=== PATIENT | male | born 1960 | race Caucasian/White ===

== ENCOUNTER 2016-12-02 05:57 | Day surgery (SDC) | payer BC, OTHER ==
[~2016-12-02] VITALS: Ht 182.9 cm; Wt 53.3 kg
[2016-12-02] MEDS ORDERED: IOHEXOL 350 MG/ML 100 ML BTL (for Cath Lab) OTHER ONE (05:58)
[2016-12-02] MEDS ORDERED: NS 1000P @30 MLS/HR (KVO) IV SCH ×2 (06:15→06:30)
[2016-12-02] MEDS ORDERED: diphenhydrAMINE HCL 50 MG CAP PO SCH ×2 (06:15→06:30)
[2016-12-02] MEDS ORDERED: POVIDONE IODINE 5% (ANTISEPSIS KIT) 4 APPLICATIONS EACH NARE PRN (06:30)
[2016-12-02] MEDS ORDERED: LACTATED RINGER'S 1000 ML IV PRN (06:30)
[2016-12-02] MEDS ORDERED: SODIUM CHLORID 0.9% 500 ML IV PRN (06:30)
[2016-12-02] MEDS ORDERED: METOPROLOL TARTRATE 25 MG TAB PO PRN (06:30)
[2016-12-02] MEDS ORDERED: INSULIN HUMAN REGULAR 1,000 UNITS/10 ML VIAL SQ PRN (06:30)
[2016-12-02] MEDS ORDERED: CHLORHEXIDINE GLUCONATE 2 % 1 PACK (2 CLOTHS) TOPICAL PRN (06:30)
[2016-12-02] MEDS ORDERED: CHOL1CAP8 PO (06:48)
[2016-12-02] MEDS ORDERED: SPIRCAP INH (06:48)
[2016-12-02] MEDS ORDERED: CYAN100025 SL (06:48)
[2016-12-02] MEDS ORDERED: LEVO1TAB50 PO (06:48)
[2016-12-02] MEDS ORDERED: FOLI400T PO (06:48)
[2016-12-02] MEDS ORDERED: MULTTAB67 PO (06:48)
[2016-12-02] MEDS ORDERED: VENTAER INH (06:48)
[2016-12-02 07:15] VITALS: BP 118/89; PULSE 72; RESP 17; TEMP 97.6; O2SAT 94
[2016-12-02 07:20] LABS: AUTOMATED NEUTROPHIL # 1.3 TH/MM3 (1.8-7.7); BASOPHIL # 0.1 TH/MM3 (0-0.2); EOSINOPHIL # 0.4 TH/MM3 (0-0.4); EOSINOPHIL % 8.4 % (0.0-4.0); HEMATOCRIT 37.1 % (39.0-51.0); HEMO FLAGS DIFF FINAL; LYMPH % 52.1 % (9.0-44.0); LYMPHOCYTE # 2.2 TH/MM3 (1.0-4.8); MEAN CELL VOLUME 103.2 FL (80.0-100.0); MEAN CORPUSCULAR HEMOGLOBIN 35.2 PG (27.0-34.0); MEAN CORPUSCULAR HGB CONC 34.2 % (32.0-36.0); MONO % 7.2 % (0.0-8.0); NEUT % 30.3 % (16.0-70.0); PLATELET COUNT 180 TH/MM3 (150-450); RED CELL DISTRIBUTION WIDTH 12.9 % (11.6-17.2); WHITE BLOOD COUNT 4.3 TH/MM3 (4.0-11.0)
[2016-12-02 07:29] LABS: APTT (PATIENT) 25.7 SEC (24.3-30.1); PROTHROMBIN TIME - PATIENT 10.5 SEC (9.8-11.6)
[2016-12-02 08:02] LABS: BICARBONATE 30.3 MEQ/L (21.0-32.0); POTASSIUM 3.8 MEQ/L (3.5-5.1)
[2016-12-02] MEDS ORDERED: HEPARIN-NS/PF INJ 1,000 ML ONE (08:13)
[2016-12-02] MEDS ORDERED: MIDAZOLAM HCL 2 MG/2 ML VIAL ONE (08:13)
[2016-12-02] MEDS ORDERED: HEPARIN SODIUM - IV 10,000 UNITS/10 ML VIAL ONE (08:14)
[2016-12-02] MEDS ORDERED: NITROGLYCERIN INJ 5 ML ONE (08:14)
[2016-12-02] MEDS ORDERED: VERAPAMIL HCL 5 MG/2 ML VIAL ONE (08:14)
[2016-12-02] MEDS ORDERED: NITROGLYCERIN-D5W 50 MG/250 ML 250 ML ONE (08:18)
--- NOTE | 2016-12-02 08:54 | EKG ---
Date Performed: 12/02/2016 Time Performed: 06:49:54 PTAGE: 56 years EKG: Sinus rhythm . Septal T wave changes are nonspecific Borderline ECG NO PREVIOUS TRACING DOCTOR: Abel Enriquez Interpretating Date/Time 12/02/2016 08:53:23
[2016-12-02] MEDS ORDERED: MISC INFORMATION XX ONE (09:30)
--- NOTE | 2016-12-02 09:42 | CATHPROC ---
[facility] HIS Report Study Information Study Number Admission Scheduled Start Study Start [id number] Dec 02 2016 5:57AM 12/02/2016 Dec 02 2016 8:04AM [facility] Service Cardiac Catheterization Admit Source Facility Department Other [facility] - [facility] Specialist Physician and Clinical Staff Initial MD Crisostomo, Pavan Cruller Maker Sean WELLS, Jean Recorder Tomeka Flores,RT(R) (BS) Recorder Jess Hinson RCIS TECH2 Scrub Primitivo Moore RCIS(BS) Procedures Performed Procedure Location (Site) Vessel Name Coronary Angiograms LCA Left Coronary Coronary Angiograms RCA Right Coronary LV Gram-hand inj. LV LV Ventricle Wire insertion Radial (right) Radial Art. Equipment Time Director Of Human Resources Description Size Mfg Part Number Used/Scraped [id number] 08:25 HUTTON CHRISTIE SWAN JAIME CATHETER FR 7 Used *[id number] TRANSDUCER, TRUWAVE [id number] 08:25 HUTTON CHRISTIE * Used W/STOCKCOCK *[id number] TRANSDUCER, TRUWAVE [id number] 08:25 HUTTON CHRISTIE * Used W/STOCKCOCK *[id number] MPIS-502-10.0- INTRODUCER SET, 08:25 [employer]OOK INC. FR 5 SC-NT-U-SST Used MICROPUNCTURE, STIFFENED *[id number] MPIS-502-10.0- INTRODUCER SET, 08:31 [employer]. FR 5 SC-NT-U-SST Used MICROPUNCTURE, STIFFENED *[id number] [phone] *[id number] *[id number] [phone] *[id number] *[id number] 08:25 House Party INDUSTRIES PACK, CCL CUSTOM * Used *[id number] 08:55 MEDTRONIC/AVE EBU 3.5 Z2 GUIDE CATHETER FR 6 Used *[id number] BAND, RADIAL COMPRESSION TR [id number] 09:15 [email or web address] MEDICAL 24CM Used SHORT 24 *[id number] 08:25 [email or web address] MEDICAL WIRE, 3MMJ .035 180CM 180CM Used *[id number] 08:25 NAMIC MANIFOLD, 2 PORT * Used *[id number] 08:25 NAMIC MANIFOLD, 4 PORT * Used *[id number] 08:25 NYCOMED OMNIPAQUE, 350 MG, 150ML 150ML [id number] Used [id number] 08:25 MCNEILL MEDICAL BLANKET,WARM AIR CCL * Used *[id number] 08:25 TERUMO MEDICAL SHEATH, FR5 TERUMO (10CM) FR 5 Used *[id number] SHEATH, FR6 TRANSRADIAL [id number] 08:29 TERUMO MEDICAL FR 6 Used SLENDER 10CM *[id number] 08:25 TERUMO MEDICAL SHEATH, FR7 TERUMO (10CM) FR 7 Used *[id number] 08:47 [place]OL[place]O PRIME WIRE, VERRATA 185CM 185CM 01160 *[id number] Used Equipment Model, Serial, Lot Number and Expiration Data Description Model Number Serial Number Lot Number Expiration Date INTRODUCER SET, [id number] 09-17-2019 MICROPUNCTURE, STIFFENED PRIME WIRE, VERRATA 185CM [id number] 09-20-2019 History: Current Medications Medication Dosage/Unit Route Frequency Last Date/Time Taken Albuterol VITAMIN D History: Allergies Allergy Reaction No Known Allergies morphine History: Risk Factors Family History of Hypertension Dyslipidemia Previous MO Previous Heart Failure Premature CAD No No No No No Prior Valve Prior PCI Prior CABG Surgery No No No Cerebrovascular Peripheral Artery Chronic Lung On Dialysis Diabetes Disease Disease Disease No No No Yes No History: Stress Tests Stress or Imaging Studies Performed No History: Other Current Smoker Method Quit Packs a Day Years Used Pack Years No Cigarettes 1 Years Ago 1 30 30 Labs Hgb (g/dl) Hct (%) WBC (l/cumm) Platelets (thousands) 11.60-17.00 35.00-51.00 4.00-11.00 150.00-450.00 12.7 37.1 4.3 180 Glucose (mg/dl) BUN (mg/dl) Creatinine (mg/dl) BUN:Creatinine (1:x) 74.00-106.00 7.00-18.00 0.50-1.30 10.00-20.00 89 8 0.8 10 Na (meq/l) K (meq/l) 136.00-145.00 3.50-5.10 139 3.8 INR (PTT:PT) 0.90-1.10 1 CPK-MB (ng/ML) 0.50-3.60 Not Drawn Medication Medication Total Dose (Bolus/Oral) Medication Total Dosage/Unit 1% XYLOCAINE 21 mL FENTANYL 100 mcg HEPARIN 2500 units RADIAL COCKTAIL 5 mL (Bolus) VERSED 2 mg Medications (Bolus/Oral) Medication Time Given Dosage/Unit Administered By Reason FENTANYL 12/02/2016 8:26:07 AM 50 mcg Jean Estrada RN 50 mcg FENTANYL given in lab by Jean Estrada RN in Left Antecubital via Peripheral IV. VERSED 12/02/2016 8:27:15 AM 2 mg Jean Estrada RN 2 mg VERSED given in lab by Jean Estrada RN in Left Antecubital via Peripheral IV. 1% XYLOCAINE 12/02/2016 8:27:40 AM 1 mL Jean Estrada RN 1 mL 1% XYLOCAINE given in lab by Jean Estrada RN in Right Radial via Subcutaneous. Ntg 200mcg Verapamil 2.5mg Heparin RADIAL COCKTAIL 12/02/2016 8:29:05 AM 5 mL (Bolus) Huan Crisostomoro 2500U 5 mL (Bolus) RADIAL COCKTAIL given in lab by Pavan Crisostomo in Right Radial via Radial. Using [Sho ution Name]. Ordered by Pavan Crisostomo. Reason: Ntg 200mcg Verapamil 2.5mg Heparin 2500U. 1% XYLOCAINE 12/02/2016 8:37:29 AM 20 mL Rafa-Pavan Ly 20 mL 1% XYLOCAINE given in lab by Pavan Crisostomo in Right Groin via Subcutaneous. HEPARIN 12/02/2016 8:46:35 AM 2500 units Jean Estrada RN 2500 units HEPARIN given in lab by Jean Estrada RN in Left Antecubital via Peripheral IV. Ordered by Pavan Crisostomo. FENTANYL 12/02/2016 8:56:34 AM 50 mcg Jean Estrada RN 50 mcg FENTANYL given in lab by Jean Estrada RN in Left Antecubital via Peripheral IV. Ordered by Pavan Moreno. Medication (Drip) Medication Time Given Dosage/Unit Concentration/Unit Diluent (ml) Solution IV Solutions 12/02/2016 8:21:18 AM 0 mL (IV) 500 NaCl .9 IV Solutions given in lab by Jean Estrada RN in Left Antecubital via Peripheral IV. Pump/Drip Flow = 20 ml/hr using NaCl .9. Initial Case Assessment Cardiovascular HR Rhythm NIBP Chest Pain 72 reg 123/76 0 Edema Present Skin color Skin None Normal Warm Dry Circulatory - Right Pulses Dorsalis Pedis Femoral Radial 2 2 2 Scale (0,1,2,3,4,d) Scale (0,1,2,3,4,d) Circulatory - Lower Extremities Color Lower Right Color Lower Left Normal Normal Neurological State Oriented to time-place- Alert Moves all extremities person Respiration - General Respiration Rate SpO2 (%) (B/min) 8 100 Chronological Log Time Study Chronological Log 8:09:32 Patient arrived via Bed. 8:09:36 Patient Name, D.O.B, / Armband Verified By R.N. 8:18:21 Right Radial and right groin(s) prepped with 2% chlorhexidine, and draped after a 3 min. wa iting time. Vitals capture started with the following parameters, Patient=Adult, Interval=5 min, Initial Pr gulvht=933 mmHg, 8:19:26 Deflation Rate=5 mmHg, Cuff placed on Right Arm 8:19:39 Consent signed by the physician and the patient and verified by the [facility] staff. 8:19:40 Pre-op and post- op instructions given; patient acknowledges understanding of instructions. 8:19:41 Verbal Stimulation=2 Physical Stimulation=2 Airway=2 Respiration=2 TOTAL=8. (0=absent, 1=li mited, 2=present) 8:19:45 Presedation assessment performed by Veterinary Milk Specialist RN. 8:19:54 Allens test performed on the right radial and ulnar artery. 8:20:01 HR=91 bpm, VXNE=344/76 mmhg, UmV0=421.0 %, Resp=12 B/min, Pain=0, Orestes=10, Dyer=2 8:20:44 Patient has been NPO for More than 6Hrs. 8:20:48 Skin Breakdown none per pt 8:20:49 Patient Warmer Placed on the Table. 8:20:51 Fannie Prominences Protected 8:21:17 A # 20 IV was noted in the Antecubital (left). Grade = 0 IV Solutions given in lab by Jean Estrada RN in Left Antecubital via Peripheral IV. Pump/Drip F low = 20 ml/hr using NaCl 8:21:18 .9. 8:21:19 History and physical on the chart or being dictated. Assessment: Initial Case, HR=72 BPM, Rhythm=reg, ZUWC=461/76 mmhg, Chest Pain=0, Edema=None, Col or=Normal, Skin = Warm, Dry Right Pulses: Robert Ped=2, Femoral=2, Radial=2 8:21:20 Lower Right Extremities: Color=Normal Lower Left Extremities: Color=Normal Neurological: State=Alert, Ox3, GARCIA Respiration: Resp=8 B/min, FuP7=699 % 8:22:06 MD paged 8::29 MD responded 8::59 Pressure channel 1 zeroed. 8:25:00 HR=80 bpm, BGLQ=779/79 mmhg, SpO2=99.0 %, Resp=7 B/min, Pain=0, Orestes=10, Dyer=2 8:25:13 MD arrived. 8:25:25 Reference ECG taken 8:26:07 50 mcg FENTANYL given in lab by Jean Estrada RN in Left Antecubital via Peripheral IV. Time Out. Correct patient, correct procedure, correct physician, power injector not loaded with contrast with surgical 8::43 team present. Time Out Concurred by MD and individual staff in procedure. 8:26:58 Case Start 8:27:15 2 mg VERSED given in lab by Jean Estrada RN in Left Antecubital via Peripheral IV. 8:27:40 1 mL 1% XYLOCAINE given in lab by Jaen Estrada RN in Right Radial via Subcutaneous. 8:28:23 Access site was right Radial Artery. A SHEATH, FR6 TRANSRADIAL SLENDER 10CM FR 6 was advanced into the Radial (right) using the [place] 8:28:37 technique. 5 mL (Bolus) RADIAL COCKTAIL given in lab by Pavan Crisostomo in Right Radial via Radial. Using [Solution Name]. 8:29:05 Ordered by Pavan Crisostomo. Reason: Ntg 200mcg Verapamil 2.5mg Heparin 2500U. A JR 4.0 INFINITI CATHETER FR 5 was advanced over a wire. OMNIPAQUE, 350 MG, 150ML 150ML was use d for 8:29:33 injections. 8:30:01 HR=84 bpm, NIBP=91/68 mmhg, SpO2=97.0 %, Resp=23 B/min, Pain=0, Orestes=10, Dyer=2 Recorded Pressure: LV, HR=94, Condition=Condition 1 8:31:00 (Left Ventricle) LV 81/1/5 8:31:14 The LV was manually injected with 8 cc's and visualized. OMNIPAQUE, 350 MG, 150ML 150ML used . Recorded Pressure: LV, Ao, HR=91, Condition=Condition 1 8:31:32 (Left Ventricle) LV 76/11/11, (Aorta) Ao 77/57/67 8:32:26 The RCA was injected and visualized at various angles. OMNIPAQUE, 350 MG, 150ML 150ML used. Recorded Pressure: Ao, HR=89, Condition=Condition 1 8:32:42 (Aorta) Ao 78/55/66 After removing the current catheter a JL 4.0 INFINITI CATHETER FR 5 was advanced over a WIRE, 3M MJ .035 180CM 8:33:07 180CM. 8:34:31 The LCA was injected and visualized at various angles. OMNIPAQUE, 350 MG, 150ML 150ML used. 8:34:56 HR=88 bpm, NIBP=88/56 mmhg, SpO2=91.0 %, Resp=7 B/min, Pain=0, Orestes=10, Dyer=2 8:36:43 Catheter was removed 8:37:29 20 mL 1% XYLOCAINE given in lab by Pavan Crisostomo in Right Groin via Subcutaneous. 8:39:42 Access site was Right Femoral Artery. A INTRODUCER SET, MICROPUNCTURE, STIFFENED FR 5 was advanced into the Fem Art (right) using the 8:39:50 Percutaneous technique. 8:39:55 HR=86 bpm, NIBP=86/60 mmhg, Resp=7 B/min, Pain=0, Orestes=10, Dyer=2 A SHEATH, FR7 TERUMO (10CM) FR 7 was exchanged in the Fem Art (right). This was necessary in ord er to 8:40:02 accomodate a larger catheter. A SWAN JAIME CATHETER FR 7 was advanced over a wire. OMNIPAQUE, 350 MG, 150ML 150ML was used for 8:40:23 injections. 8:42:15 The Recorder is being relieved by Jess Hinson RCIS TECH2. Recorded Pressure: PCW, HR=82, Condition=Condition 1 8:42:54 (Pulmonary Capillary Wedge) PCW 9//7 Recorded Pressure: MPA, HR=86, Condition=Condition 1 8:43:11 (Main Pulmonary Artery) MPA 08/10/13 Saturation: Site=MPA (Main Pulmonary Artery) , O2=77 %, Hgb=12.7 gm/dl, Condition=Condition 1. U sed in 8:43:43 calculation. Recorded Pressure: RV, HR=81, Condition=Condition 1 8:43:50 (Right Ventricle) RV 8:44:07 Saturation: Site=Ao (Aorta) , O2=91.5 %, Hgb=12.7 gm/dl, Condition=Condition 1. Used in calc ulation. 8:44:20 Saturation: Site=RV (Right Ventricle) , O2=76.4 %, Hgb=12.7 gm/dl, Condition=Condition 1. Us ed in calculation. 8:44:54 HR=81 bpm, NIBP=92/58 mmhg, Resp=6 B/min 8:45:26 Saturation: Site=RA (Right Atrium) , O2=77.5 %, Hgb=12.7 gm/dl, Condition=Condition 1. Used in calculation. Recorded Pressure: RA, HR=82, Condition=Condition 1 8:45:42 (Right Atrium) RA 3 8:46:35 2500 units HEPARIN given in lab by Jean Estrada RN in Left Antecubital via Peripheral IV. Or dered by Pavan Crisostomo. 8:46:58 Tolna Jaime Catheter Removed A JR 4.0 GUIDE CATHETER FR 6 was advanced over a wire. OMNIPAQUE, 350 MG, 150ML 150ML was used f or 8:47:09 injections. 8:49:55 HR=81 bpm, NIBP=91/63 mmhg, Resp=7 B/min 8:50:07 A PRIME WIRE, VERRATA 185CM 185CM was inserted via Radial (right). 8:51:13 Flow Wire was was placed in the RCA. The IFR measures 0.97 Percent. 8:53:28 The PRIME WIRE, VERRATA 185CM 185CM was removed. 8:54:57 HR=83 bpm, NIBP=94/63 mmhg, SpO2=96 %, Resp=9 B/min After removing the current catheter a EBU 3.5 Z2 GUIDE CATHETER FR 6 was advanced over a WIRE, 3 MMJ .035 8:55:46 180CM 180CM. 8:56:34 50 mcg FENTANYL given in lab by Jean Estrada RN in Left Antecubital via Peripheral IV. Order ed by Pavan Crisostomo. 8:58:18 A PRIME WIRE, VERRATA 185CM 185CM was inserted via Radial (right). 8:59:13 The PRIME WIRE, VERRATA 185CM 185CM was removed. Unable to advance prime wire down Ramus 8:59:58 HR=83 bpm, NIBP=84/61 mmhg, Resp=6 B/min After removing the current catheter a JL 4.0 GUIDE CATHETER FR 6 was advanced over a WIRE, 3MMJ .035 180CM 9:02:51 180CM. 9:03:15 A PRIME WIRE, VERRATA 185CM 185CM was inserted via Radial (right). 9:04:55 HR=85 bpm, NIBP=97/66 mmhg, SpO2=93.0 %, Resp=4 B/min 9:09:58 HR=83 bpm, NIBP=92/70 mmhg, SpO2=96 %, Resp=6 B/min 9:10:17 The PRIME WIRE, VERRATA 185CM 185CM was removed. Unable to do IFR, no guide support 9:10:55 Case End 9:12:55 Activated Clotting Time Drawn Radial Compression Device Used. 12 mLs of air placed in BAND, RADIAL COMPRESSION TR SHORT 24 24C M. Affected 9:14:19 hand 95 % O2 saturation. 9:14:57 HR=84 bpm, ENEJ=414/66 mmhg, SpO2=97.0 %, Resp=12 B/min 9:17:16 ACT (Normal Range 90-180) = 267 9:19:37 In the Fem Vein (right) the SHEATH, FR7 TERUMO (10CM) FR [address] by Micky Moore RCIS(BS). 9:20:00 HR=82 bpm, NIBP=94/64 mmhg, SpO2=95 %, Resp=11 B/min 9:20:34 Sterile dressing applied to site 9:24:28 Patient moved to bed 9:25:39 Patient transported to DOCU End Study - Contrast Media Used In Study Contrast Total Opened (mL) Total Used (mL) Total Wasted (mL) Omnipaque 90 90 0 End Study - Maximum Contrast Load Max Contrast Load (mL) 333.2 End Study - Radiation Exposure Fluoro Time (minutes) 17.3 End Study - Sheaths Sheaths Pulled By Sheath Hold Time (min) Primitivo Moore End Study - Patient Disposition Complications Transferred To Interventional Outcome No Telemetry Bed No attempt made
--- NOTE | 2016-12-02 10:01 | MA ---
cc: LEAH ABDUL DATE 12/02/2016 DATE OF 1960 PROCEDURE PERFORMED 1. Left heart catheterization 2. Selective right and left coronary angiography 3. Left ventriculogram 4. Right heart cath INDICATION Moderate to severe mitral regurgitation. PREOPERATIVE EVALUATION The patient complains of worsening shortness of breath on exertion. PROCEDURE DESCRIPTION Consent signed. The patient was brought into the cardiac laborer tanbark in a fasting state. The right groin and right wrist was prepped and draped in sterile fashion. Using 1% lidocaine for local anesthesia and a micropuncture kit, a 6-Montserratian sheath was inserted into the right radial artery. Antispasmodic cocktail given, then selective right and left coronary angiography was performed with JR-4 and JL-4 diagnostic catheters. Angiography was taken in multiple views. We identified the significant lesion, one in the right coronary artery and one in the ramus. They were less than 70% for which IFR was attempted. For this, heparin was given for anticoagulation. The right coronary artery was engaged with a JR-4 guide. The vessel was wired with a pressure wire which was equalized outside the vessel and then advanced and anchored distally. The IFR of the right coronary artery was 0.97 which is negative for ischemia for which no intervention was done. Regarding the ramus intermedius, there is a 70% lesion in the ramus vessel which is a 2.5 mm vessel. For this, we attempted an IFR, however, there was no back up from the guide. The vessel was small for which we aborted the procedure. The patient tolerated the procedure well without complication. Estimated blood loss less than 50 cc. Total contrast used 90 cc. The right wrist access site was closed with a TR band. Regarding the right heart cath, the right groin was prepped and there in the usual sterile fashion. 1% lidocaine was used for local anesthesia. Then we used a micropuncture kit to access the right femoral vein. Then an 8-Montserratian sheath was inserted into the right femoral vein. This was followed by floating the [place]-Savi into wedge fluoroscopy guided. Then we recorded hemodynamics from wedge, main PA, right ventricle, right atrium. This was simultaneously done by blood samples. The patient tolerated the procedure well without complications. Estimated blood loss less than 30 cc. Total contrast used to the right heart cath zero. RESULTS HEMODYNAMIC RESULTS The left ventricular pressure was 76/11 with an LVEDP of 11. The aortic pressure was 78/55 with a mean of 66. The wedge pressure was 7. The main PA artery pressure was 19/8, mean of 14. The right ventricular pressure was 19/1, mean of 6. The right atrial pressure was 5/4 with a mean of 3. LEFT VENTRICULOGRAM The left ventriculogram revealed symmetrically jie ventricle with an estimated ejection fraction of 60%. There was no gradient upon pullback from the left ventricle to the aorta. ANGIOGRAPHY Right coronary artery: The right coronary is a dominant vessel giving off the PDA and a PLV branch. It has a 60% lesion in its mid segment. The FFR was negative. Other than that, the right coronary artery has no significant obstructive coronary artery disease and has HELDER-III flow. The left main is short and patent. It is giving off the LAD as well as the ramus intermedius and the left circumflex arteries. The LAD is a transapical vessel that has minimal luminal irregularities throughout. It has a 10% lesion proximally. It is mildly calcified. Also its proximal segment is giving of one diagonal vessel which is patent with HELDER-III flow. The left circumflex artery has minimal luminal irregularities throughout. It is giving off one OM obtuse marginal vessel which is small and patent, as well as an AV groove. A portion of the circ is patent with HELDER-III flow, nonobstructive coronary artery disease. The ramus intermedius measures around 2.5 mm in its proximal segment. It does have a 70% at least lesion that is focal on its proximal segment. CONCLUSION 1. One-vessel coronary artery disease in the ramus intermedius vessel. 2. At least moderate mitral regurgitation with , preserved LV systolic function and unremarkable right heart cath. RECOMMENDATIONS The patient will go to the DOC unit for post cath care. He will be consulted to cardiothoracic surgery for further evaluation of the mitral valve. If CT surgery deems him not a surgical candidate or no significant candidate at this time due to the mitral valve not being that severe, then we will revisit the case to do a PCI to the ramus intermedius vessel. In the meantime, continue aggressive medical therapy for CAD with aspirin, beta-blockers, LINDA inhibitors and statins. The patient will also be on long-acting nitrates and smoking cessation is strongly advised. MD KRISTEN Walker/PIERRE /9:14 AM 9:29 AM
[2016-12-02] MEDS ORDERED: ePHEDrine/NS 25 MG/5 ML SYR IV ONE (12:00)
[2016-12-02] MEDS ORDERED: PROPOFOL 200 MG/20 ML AMP IV ONE (12:00)
--- NOTE | 2016-12-02 15:20 | RADRPT ---
EXAM DATE/TIME: 12/02/2016 13:52 [facility] COMPARISON: No previous studies available for comparison. INDICATIONS : Pre op cardiac surgery. MEDICAL HISTORY : Chronic obstructive pulmonary disease. SURGICAL HISTORY : Mitral valve replacement. ENCOUNTER: Initial ACUITY: 1 day PAIN SCORE: 110 LOCATION: Bilateral neck PEAK SYSTOLIC VELOCITIES (cm/sec): ICA/CCA RATIO: Right: 0.9 Left: 1.0 ICA: Right: 79 Left: 78 CCA: Right: 91 Left: 80 ECA: Right: 84 Left: 96 VERTEBRAL: Right: 45 antegrade Left: 59 antegrade Elevated flow velocities and ICA/CCA ratios have been found to correlate with increased degrees of vessel stenosis, calculated as percentage of diameter relative to a normal segment of distal ICA/CCA FINDINGS: Ultrasound of the carotid arteries was performed bilaterally using real-time Doppler and color Dopple r imaging. Examination of the right carotid artery demonstrates mild fibrous plaque within the bifurcation. No w aveform abnormalities are identified and no spectral broadening is seen. Examination of the left santo tid artery demonstrates mild fibrous plaque within the bulb. No waveform abnormalities are identified and no spectral broadening is seen. There is antegrade flow in both vertebral arteries. CONCLUSION: No evidence of hemodynamically significant lesion. Jackson Arce MD on December 02, 2016 at 15:18 Board Certified Radiologist. This report was verified electronically.
--- NOTE | 2016-12-02 15:21 | RADRPT ---
EXAM DATE/TIME: 12/02/2016 14:24 [facility] COMPARISON: No previous studies available for comparison. INDICATIONS : Pre op cardiac surgery. MEDICAL HISTORY : Chronic obstructive pulmonary disease. SURGICAL HISTORY : Mitral valve replacement. ENCOUNTER: Initial ACUITY: 1 day PAIN SCORE: 1/10 LOCATION: Bilateral legs. GREATER SAPHENOUS VEIN THIGH: PROXIMAL: Right 4 mm Left 3 mm MID: Right 4 mm Left 5 mm DISTAL: Right 3 mm Left 4 mm CALF: PROXIMAL: Right 3 mm Left 4 mm MID: Right 3 mm Left 3 mm DISTAL: Right 4 mm Left 3 mm FINDINGS: The venous system of the lower extremities are patent by color Doppler imaging. Measurements of the leg veins (in mm) are listed above. CONCLUSION: 1. Venous mapping as above Jackson Arce MD on December 02, 2016 at 15:20 Board Certified Radiologist. This report was verified electronically.
--- NOTE | 2016-12-02 15:21 | RADRPT ---
EXAM DATE/TIME: 12/02/2016 14:16 [facility] COMPARISON: No previous studies available for comparison. INDICATIONS : Pre op cardiac surgery. MEDICAL HISTORY : Chronic obstructive pulmonary disease. SURGICAL HISTORY : Mitral valve replacement. ENCOUNTER: Initial ACUITY: 1 day PAIN SCORE: 2/10 LOCATION: Bilateral legs. TECHNIQUE: Venous ultrasound of the left and right leg was performed from the inguinal ligament to the proximal calf. Real-time, color Doppler and spectral tracing, compression and augmentation techniques were us ed. FINDINGS: RIGHT LEG: There is normal compressibility of the deep venous system from the inguinal region to the proximal ca lf. No echogenic clot is seen in the lumen of the common femoral, femoral, popliteal, and posterior tibial veins. There is a normal response of the venous system to proximal and distal augmentation an d respiration. LEFT LEG: There is normal compressibility of the deep venous system from the inguinal region to the proximal ca lf. No echogenic clot is seen in the lumen of the common femoral, femoral, popliteal, and posterior tibial veins. There is a normal response of the venous system to proximal and distal augmentation an d respiration. CONCLUSION: 1. No evidence of deep venous thrombosis. Jackson Arce MD on December 02, 2016 at 15:19 Board Certified Radiologist. This report was verified electronically.
--- NOTE | 2016-12-02 16:01 | RADRPT ---
EXAM DATE/TIME: 12/02/2016 15:19 [facility] COMPARISON: No previous studies available for comparison. INDICATIONS : Pneumonia,pneumothorax, or communicable disease. Pre- op for mitro valve replacement. MEDICAL HISTORY : Chronic obstructive pulmonary disease. Emphysema. SURGICAL HISTORY : right upper lobectomy. Cardiac cath. ENCOUNTER: Initial ACUITY: 1 day PAIN SCORE: 0/10 LOCATION: Bilateral chest FINDINGS: PA and lateral views of the chest demonstrate the lungs to be symmetrically aerated without evidence of mass, infiltrate or effusion. The lungs are hyperinflated bilaterally. The cardiomediastinal conto urs are unremarkable. Osseous structures are intact. CONCLUSION: 1. Hyperinflation suggesting COPD. No acute infiltrate or effusion. Davy Carver Jr., MD on December 02, 2016 at 15:59 Board Certified Radiologist. This report was verified electronically.
[2016-12-02 16:48] LABS: AUTOMATED NEUTROPHIL # 3.1 TH/MM3 (1.8-7.7); BASOPHIL # 0.1 TH/MM3 (0-0.2); BASOPHIL % 0.9 % (0.0-2.0); EOSINOPHIL # 0.4 TH/MM3 (0-0.4); EOSINOPHIL % 5.6 % (0.0-4.0); HEMATOCRIT 35.3 % (39.0-51.0); LYMPH % 38.8 % (9.0-44.0); LYMPHOCYTE # 2.5 TH/MM3 (1.0-4.8); MEAN CELL VOLUME 103.8 FL (80.0-100.0); MEAN CORPUSCULAR HEMOGLOBIN 35.4 PG (27.0-34.0); MEAN CORPUSCULAR HGB CONC 34.1 % (32.0-36.0); MONO % 7.2 % (0.0-8.0); NEUT % 47.5 % (16.0-70.0); PLATELET COUNT 174 TH/MM3 (150-450); RED CELL DISTRIBUTION WIDTH 13.4 % (11.6-17.2); WHITE BLOOD COUNT 6.5 TH/MM3 (4.0-11.0)
[2016-12-02 16:52] LABS: HEMO FLAGS AUTO DIFF
[2016-12-02 17:03] LABS: BICARBONATE 29.7 MEQ/L (21.0-32.0); POTASSIUM 3.9 MEQ/L (3.5-5.1)
[2016-12-02 17:07] LABS: BLOOD, URINE NEG (NEG); COMMENT (UR) CULT NOT INDICATED; CULTURE IF INDICATED CULT NOT INDICATED; GLUCOSE,URINE NEG (NEG); KETONE, URINE NEG (NEG); MUCUS URINE FEW /lpf (OCC); NITRITE,URINE NEG (NEG); PH, URINE 6.5 (5.0-8.5); SQUAMOUS EPITHELIAL CELL URINE 1 /hpf (0-5); URINE COLOR YELLOW (YELLW/STRAW)
[2016-12-02 17:28] LABS: PLATELET ESTIMATE SMEAR NORMAL (NORMAL); PLATELET MORPHOLOGY NORMAL (NORMAL); SCAN/DIFF AUTO DIFF CONFIRMED
--- NOTE | 2016-12-02 18:08 | PD.CAR.PN ---
CVT Progress Note Subjective/Hospital Course: sts data discussed with pt RISK SCORES About the STS Risk Calculator Procedure: MV Replacement + CAB Risk of Mortality: 2.529% Morbidity or Mortality: 19.537% Long Length of Stay: 9.017% Short Length of Stay: 22.975% Permanent Stroke: 1.024% Prolonged Ventilation: 15.977% DSW Infection: 0.417% Renal Failure: 4.41% Reoperation: 10.481% Objective: Vital Signs Date Time Temp Pulse Resp B/P (MAP) Pulse Ox O2 Delivery O2 Flow Rate FiO2 12/02/16 09:27 100 Room Air 12/02/16 07:15 97.6 72 17 118/89 (99) 94 Labs: Laboratory Tests Test 12/02/16 06:34 12/02/16 15:05 12/02/16 15:44 White Blood Count 4.3 TH/MM3 (4.0-11.0) 6.5 TH/MM3 (4.0-11.0) Red Blood Count 3.60 MIL/MM3 (4.50-5.90) 3.40 MIL/MM3 (4.50-5.90) Hemoglobin 12.7 GM/DL (13.0-17.0) 12.1 GM/DL (13.0-17.0) Hematocrit 37.1 % (39.0-51.0) 35.3 % (39.0-51.0) Mean Corpuscular Volume 103.2 FL (80.0-100.0) 103.8 FL (80.0-100.0) Mean Corpuscular Hemoglobin 35.2 PG (27.0-34.0) 35.4 PG (27.0-34.0) Mean Corpuscular Hemoglobin Concent 34.2 % (32.0-36.0) 34.1 % (32.0-36.0) Red Cell Distribution Width 12.9 % (11.6-17.2) 13.4 % (11.6-17.2) Platelet Count 180 TH/MM3 (150-450) 174 TH/MM3 (150-450) Mean Platelet Volume 7.8 FL (7.0-11.0) 8.2 FL (7.0-11.0) Neutrophils (%) (Auto) 30.3 % (16.0-70.0) 47.5 % (16.0-70.0) Lymphocytes (%) (Auto) 52.1 % (9.0-44.0) 38.8 % (9.0-44.0) Monocytes (%) (Auto) 7.2 % (0.0-8.0) 7.2 % (0.0-8.0) Eosinophils (%) (Auto) 8.4 % (0.0-4.0) 5.6 % (0.0-4.0) Basophils (%) (Auto) 2.0 % (0.0-2.0) 0.9 % (0.0-2.0) Neutrophils # (Auto) 1.3 TH/MM3 (1.8-7.7) 3.1 TH/MM3 (1.8-7.7) Lymphocytes # (Auto) 2.2 TH/MM3 (1.0-4.8) 2.5 TH/MM3 (1.0-4.8) Monocytes # (Auto) 0.3 TH/MM3 (0-0.9) 0.5 TH/MM3 (0-0.9) Eosinophils # (Auto) 0.4 TH/MM3 (0-0.4) 0.4 TH/MM3 (0-0.4) Basophils # (Auto) 0.1 TH/MM3 (0-0.2) 0.1 TH/MM3 (0-0.2) CBC Comment DIFF FINAL AUTO DIFF Differential Comment AUTO DIFF CONFIRMED Prothrombin Time 10.5 SEC (9.8-11.6) Prothromb Time International Ratio 1.0 RATIO Activated Partial Thromboplast Time 25.7 SEC (24.3-30.1) Blood Urea Nitrogen 8 MG/DL (7-18) 10 MG/DL (7-18) Creatinine 0.81 MG/DL (0.60-1.30) 0.79 MG/DL (0.60-1.30) Random Glucose 89 MG/DL (74-106) 96 MG/DL (74-106) Calcium Level 8.2 MG/DL (8.5-10.1) 8.9 MG/DL (8.5-10.1) Sodium Level 139 MEQ/L (136-145) 140 MEQ/L (136-145) Potassium Level 3.8 MEQ/L (3.5-5.1) 3.9 MEQ/L (3.5-5.1) Chloride Level 104 MEQ/L (98-107) 105 MEQ/L (98-107) Carbon Dioxide Level 30.3 MEQ/L (21.0-32.0) 29.7 MEQ/L (21.0-32.0) Anion Gap 5 MEQ/L (5-15) 5 MEQ/L (5-15) Estimat Glomerular Filtration Rate 99 ML/MIN (>89) 102 ML/MIN (>89) Urine Color YELLOW (YELLW/STRAW) Urine Turbidity CLEAR (CLEAR) Urine pH 6.5 (5.0-8.5) Urine Specific S[place]y 1.050 (1.002-1.035) Urine Protein TRACE mg/dL (NEG-TRACE) Urine Glucose (UA) NEG mg/dL (NEG) Urine Ketones NEG mg/dL (NEG) Urine Occult Blood NEG (NEG) Urine Nitrite NEG (NEG) Urine Bilirubin NEG (NEG) Urine Urobilinogen LESS THAN 2.0 MG/DL (LESS Urine Leukocyte Esterase NEG (NEG) Urine Squamous Epithelial Cells 1 /hpf (0-5) Urine Mucus FEW /lpf (OCC) Microscopic Urinalysis Comment CULT NOT INDICATED Platelet Estimate NORMAL (NORMAL) Platelet Morphology Comment NORMAL (NORMAL) Result Diagram: 12/02/16 1544 12/02/16 1544 Diane Menon Dec 02, 2016 18:08
[2016-12-03 13:24] LABS: HEMOGLOBIN A1a 1.1 %; HEMOGLOBIN A1b 1.5 %; HEMOGLOBIN Ao 86.4 %; HEMOGLOBIN LA1C 2.1 %; HEMOGLOBIN P3 3.4 %
--- NOTE | 2016-12-05 08:06 | MB ---
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 He was admitted over at [facility] ([place], [place]) two weeks ago, had a stress test and an echocardiogram. He has also been having some dizziness, lightheadedness. The pain was sporadic. He did have an echocardiogram at Dr. Craig's office October 06; at that time showed an EF of 55-60%, moderate mitral valve regurgitation with an eccentric jet. He underwent JAYLON today, also had heart catheterization which showed some RCA stenosis 60%, ramus of 70, diagonal 60%. We were consulted to evaluate for mitral valve repair versus mitral valve replacement, coronary artery bypass grafting x2. PAST MEDICAL HISTORY 1. He had a prior infection with mycobacterium Avium. 2. In 2011 underwent right upper lobectomy at that time. Has had a recent CT chest October 21 at [facility] which showed some central emphysema, some parenchymal scarring in the lower lobes, postsurgical changes of the right lung, no residual mass or metastatic disease. His livestock inspector is Dr. Navdeep Villafuerte. 3. COPD ALLERGIES MORPHINE - CAUSES ITCHING. He has no hives or rash MEDICATIONS Home include 1. Vitamin B12. 2. Folic acid. 3. Multivitamins 4. Spiriva inhaler. 5. Ventolin inhaler 6. Xyzal 5 mg p.o. q.h.s. FAMILY HISTORY Noncontributory SOCIAL HISTORY A 30 pack-year of tobacco abuse. Smoked one to two packs. He quit two months ago. Occasional beer. Prior heavy ETOH use. , three children. Retired from the [employer]. Works in a golf course. REVIEW OF SYSTEMS GENERAL: No night sweats, fever, heat and cold intolerance. SKIN: No psoriasis, itching or hives. HEENT: No blurred vision, hearing loss. RESPIRATORY: Positive for shortness of breath. CARDIOVASCULAR: As above in the HPI. GASTROINTESTINAL: No diarrhea, vomiting. GENITOURINARY:: No burning frequency, urgency COATER HAND: No history of TIA, CVA, seizure disorder ENDOCRINE: No history of hypothyroidism or diabetes mellitus. PHYSICAL EXAMINATION VITAL SIGNS: Blood pressure 1180/70, heart rate 72, afebrile. GENERAL: Patient is awake, alert in no acute distress. HEENT: Head is normocephalic, atraumatic. Pupils equal and reactive. Oral mucosa pink, moist. NECK: Supple. No JVD. Good dentition. CARDIAC: Heart sounds S1, S2 regular rate and rhythm. Soft systolic murmur left sternal border. ABDOMEN: Soft, flat, nontender. No masses or organomegaly. EXTREMITIES: No cyanosis, clubbing or edema. LABORATORY DATA Hemoglobin 12, hematocrit 35, white cell count 6.5, platelet count 174. Sodium 140, potassium 3.9, BUN 10, creatinine 0.79, hemoglobin A1c pending. INR 1.0. Urinalysis unremarkable. MRSA screen pending. IMAGING STUDIES Carotid ultrasound - no evidence of significant lesions. Chest x-ray - Hyperinflation suggestive of COPD, otherwise unremarkable. Ultrasound of the lower extremities - No evidence of DVT. IMPRESSION This is a 56-year-old male with recent symptoms of shortness of breath, fatigue and also chest pain status post echocardiogram and JAYLON with mitral valve regurgitation. JAYLON resulting pending. Also coronary artery catheterization with two-vessel disease to the RCA and the ramus. Procedures, alternatives and risks have been discussed with the patient. STS data will be discussed and documented in the electronic record. Plan will be for mitral valve repair versus replacement, also coronary artery bypass graft x2. The plan will be for December 22. If the patient should have any further symptoms prior, he will notify his application packager and/or return to the emergency room and we will have to plan for an earlier date. Dictated by SHEFALI Fernandez MD ANTHONY Carlson/ /5:58 PM /8:01 AM
--- NOTE | 2016-12-05 14:13 | ECHRPT ---
Indication: mr CONCLUSIONS Normal LV systolic dysfunction No wall motion abnormality Rupture papillaty muscle Moderate mitral regurgitation No pericardial effusion No PRABHU thrombus No massess BP: / HR: Rhythm: Technical Quality:Good Medications Complications Proc. Components Pavan Crisostomo MD (Electronically Signed) Final Date:05 December 2016 14:12
--- NOTE | 2016-12-06 10:12 | RSPPFT ---
DATE OF PROCEDURE: 12/02/16 COMMENTS: Spirometry with FVC of 2.7 predicted 5.0, FEV1 of 1.7 predicted 4.0, FEV1/FVC ratio 62% predicted 80%. IMPRESSION: On the basis of the above, patient has an obstructive lung defect. Post-bronchodlator values and lung volumes have not been measured.
== END 2016-12-02 17:39 | disposition home or self-care (01) ==
LOC: HDOC 05:57 → HDIC 05:58 → HDOC 17:39
PROVIDERS: ATTEND Radiology Vascular & Interventional Radiology
DX: I25.10 Atherosclerotic heart disease of native coronary artery without angina pectoris (principal); I34.0 Nonrheumatic mitral (valve) insufficiency; J44.9 Chronic obstructive pulmonary disease, unspecified; Z01.818 Encounter for other preprocedural examination
CPT/HCPCS: 71020; 80048; 81001; 82810; 83036; 85002; 85025; 85610; 85730; 87641; 93005; 93312; 93320; 93325; 93460; 93571; 93880; 93970; 93998; 94010; C1769; C1887; C1893; J1644; J2250; J3010; Q9967

== ENCOUNTER → 2016-12-14 | Outpatient (CLI) | payer BC, OTHER ==
[~2016-12-14] MED LIST: AMIO200T PO; ASPI81CH25 PO; ATOR40TA16 PO; CHOL1CAP8 PO; CYAN100025 SL; DOCU1CAP39 PO; FOLI400T PO; LEVO5TAB8 PO; METO25TA3 PO; MULTTAB67 PO; OXYC1TAB63 PO; PLAV75TA29 PO; SPIRCAP INH; VENTAER INH
[2016-12-14 11:38] LABS: BASOPHIL # 0.1 TH/MM3 (0-0.2); BASOPHIL % 1.5 % (0.0-2.0); EOSINOPHIL # 0.2 TH/MM3 (0-0.4); EOSINOPHIL % 3.7 % (0.0-4.0); HEMATOCRIT 37.5 % (39.0-51.0); HEMOGLOBIN 12.8 GM/DL (13.0-17.0); LYMPH % 31.1 % (9.0-44.0); LYMPHOCYTE # 1.7 TH/MM3 (1.0-4.8); MEAN CELL VOLUME 104.4 FL (80.0-100.0); MEAN CORPUSCULAR HEMOGLOBIN 35.8 PG (27.0-34.0); MEAN CORPUSCULAR HGB CONC 34.2 % (32.0-36.0); MEAN PLATELET VOLUME 7.9 FL (7.0-11.0); MONO % 8.7 % (0.0-8.0); MONOCYTE # 0.5 TH/MM3 (0-0.9); PLATELET COUNT 205 TH/MM3 (150-450); RED BLOOD COUNT 3.59 MIL/MM3 (4.50-5.90); RED CELL DISTRIBUTION WIDTH 13.8 % (11.6-17.2); WHITE BLOOD COUNT 5.5 TH/MM3 (4.0-11.0)
[2016-12-14 11:39] LABS: INTERNATIONAL NORMALIZED RATIO 0.9 RATIO; PROTHROMBIN TIME - PATIENT 10.4 SEC (9.8-11.6)
[2016-12-14 11:55] LABS: ALBUMIN 4.1 GM/DL (3.4-5.0); BICARBONATE 28.6 MEQ/L (21.0-32.0); BLOOD UREA NITROGEN 13 MG/DL (7-18); CALCIUM 9.4 MG/DL (8.5-10.1); CHLORIDE 104 MEQ/L (98-107); CREATININE 0.78 MG/DL (0.60-1.30); GLOMERULAR FILTRATION RATE 103 ML/MIN (>89); GLUCOSE,FASTING 92 MG/DL (74-99); SODIUM (NA) 139 MEQ/L (136-145)
[2016-12-14 11:57] LABS: ALT (GPT) 29 U/L (12-78); AST (GOT) 39 U/L (15-37)
[2016-12-14 11:59] LABS: ALKALINE PHOSPHATASE 67 U/L (45-117); TOTAL BILIRUBIN ADULT 0.5 MG/DL (0.2-1.0); TOTAL PROTEIN 7.4 GM/DL (6.4-8.2)
== END ==
LOC: CPRE 10:43
PROVIDERS: ATTEND Thoracic Surgery (Cardiothoracic Vascular Surgery)
DX: Z01.812 Encounter for preprocedural laboratory examination (principal); I25.10 Atherosclerotic heart disease of native coronary artery without angina pectoris; I34.2 Nonrheumatic mitral (valve) stenosis
CPT/HCPCS: 36415; 80053; 85025; 85610; 86850; 86900; 86901

== ENCOUNTER 2016-12-22 05:25 | Inpatient (IN) | payer BC, OTHER ==
[~2016-12-22] VITALS: Ht 188 cm; Wt 55.5 kg
[2016-12-22] VITALS (9 sets, daily range): BP systolic 99–122; BP diastolic 60–88; PULSE 82–99; RESP 14–18; TEMP 95.1–97.4; O2SAT 94–99
[~2016-12-22 05:25] MED LIST changes: -AMIO200T PO; -ASPI81CH25 PO; -ATOR40TA16 PO; -DOCU1CAP39 PO; -METO25TA3 PO; -OXYC1TAB63 PO; -PLAV75TA29 PO
[2016-12-22] MEDS ORDERED: POVIDONE IODINE 5% (ANTISEPSIS KIT) 4 APPLICATIONS EACH NARE PRN (06:00)
[2016-12-22] MEDS ORDERED: SODIUM CHLORID 0.9% 500 ML IV PRN (06:00)
[2016-12-22] MEDS ORDERED: CHLORHEXIDINE GLUCONATE 2 % 1 PACK (2 CLOTHS) TOPICAL PRN (06:00)
[2016-12-22] MEDS ORDERED: LACTATED RINGER'S 1000 ML IV PRN (06:00)
[2016-12-22] MEDS ORDERED: METOPROLOL TARTRATE 25 MG TAB PO SCH (06:00)
[2016-12-22] MEDS ORDERED: INSULIN REGULAR 100 UNITS in NS 100 ML IV PRN (06:00)
[2016-12-22] MEDS ORDERED: ceFAZolin 2 GM PREMIX 50 ML IV SCH (06:00)
[2016-12-22] MEDS ORDERED: PAPAVERINE 60 MG-NITROGLYCERIN 100 MCG-DILTIAZEM 100 MG in NS 100 ML IRRIGATION SCH ×4 (06:00)
[2016-12-22] MEDS ORDERED: CEFAZOLIN 500 MG in NS IRR BTL 500 ML IRRIGATION SCH (06:00)
[2016-12-22] MEDS ORDERED: DEXTROSE 50% IN WATER 50 ML VIAL(D50) IV PUSH PRN ×2 (06:00→11:00)
[2016-12-22] MEDS ORDERED: CHLORHEXIDINE GLUCONATE 4% SOLN 120 ML BTL TOPICAL SCH (06:00)
[2016-12-22] MEDS ORDERED: SODIUM CHLORIDE 0.9% FLUSH 10 ML FLUSH IV FLUSH PRN ×2 (06:00)
[2016-12-22] MEDS ORDERED: methylPREDNISolone SOD SUCC 125 MG/2 ML VIAL ONE (06:17)
[2016-12-22] MEDS ORDERED: HEPARIN SODIUM - SQ 10,000 UNITS/ML VIAL ONE (06:17)
[2016-12-22] MEDS ORDERED: VANCOMYCIN HCL 1000 MG VIAL ONE (06:17)
[2016-12-22] MEDS ORDERED: ceFAZolin 2 GM PREMIX 50 ML ONE (06:18)
[2016-12-22] MEDS ORDERED: ACETAMINOPHEN 1000 MG/100 ML 100 ML IV ONE (06:57)
[2016-12-22] MEDS ORDERED: DEXMEDETOMIDINE HCL 200 MCG/2 ML VIAL ONE (06:58)
[2016-12-22] MEDS ORDERED: CUSTODIOL HTK IRR SOLN 2,000 ML ONE (07:25)
[2016-12-22] MEDS ORDERED: POTASSIUM CHLORIDE 40 MEQ/20 ML VIAL ONE (07:26)
[2016-12-22] MEDS ORDERED: SODIUM BICARBONATE 8.4% INJ 150 ML ONE (07:26)
[2016-12-22] MEDS ORDERED: MANNITOL INJ 100 ML ONE (07:27)
[2016-12-22] MEDS ORDERED: HEPARIN SODIUM - IV 10,000 UNITS/10 ML VIAL ONE (07:27)
[2016-12-22] MEDS ORDERED: ALBUMIN 25% INJ 50 ML IV ONE (07:27)
[2016-12-22] MEDS ORDERED: CALCIUM CHLORIDE 10% SOLN 1 GRAM/10 ML SYR ONE (07:28)
[2016-12-22] MEDS ORDERED: LACTATED RINGER'S 1000 ML INJ 500 ML IV PRN (10:59)
[2016-12-22] MEDS ORDERED: DEXMEDETOMIDINE INJ 200 MCG in SODIUM CHLORIDE 0.9% INJ 50 ML IV PRN (11:00)
[2016-12-22] MEDS ORDERED: METOPROLOL TARTRATE 5 MG/5 ML VIAL IV PUSH PRN (11:00)
[2016-12-22] MEDS ORDERED: SODIUM BICARBONATE 8.4% SOLN 50 MEQ/50 ML VIAL IV PUSH PRN ×2 (11:00)
[2016-12-22] MEDS ORDERED: CLEVIDIPINE INJ 50 ML IV PRN (11:00)
[2016-12-22] MEDS ORDERED: RESP: ALBUTEROL 2.5 MG/IPRATROPIUM 0.5 MG NEB (PRN) NEB ×2 (11:00→14:00)
[2016-12-22] MEDS ORDERED: ONDANSETRON HCL 4 MG/2 ML VIAL IV PUSH PRN (11:00)
[2016-12-22] MEDS ORDERED: MAGNESIUM SULFATE INJ 2 GM in SODIUM CHLORIDE 0.9% INJ 100 ML IV PRN ×4 (11:00)
[2016-12-22] MEDS ORDERED: CALCIUM CHLORIDE 10% 1 GRAM/10 ML VIAL IV PUSH PRN (11:00)
[2016-12-22] MEDS ORDERED: RESP: RACEPINEPHRINE 2.25% 0.5 ML NEB NEB PRN ×2 (11:00→14:00)
[2016-12-22] MEDS ORDERED: hydrALAZINE HCL 20 MG/ML VIAL IV PUSH PRN (11:00)
[2016-12-22] MEDS ORDERED: POTASSIUM CHLORIDE 20 MEQ CONTROLLED RELEASE TAB PO PRN ×2 (11:00)
[2016-12-22] MEDS ORDERED: ACETAMINOPHEN 325 MG TAB PO PRN (11:00)
[2016-12-22] MEDS ORDERED: KETOROLAC TROMETHAMINE 30 MG/ML (IVP) VIAL IV PUSH PRN (11:00)
[2016-12-22] MEDS ORDERED: POTASSIUM CHLOR 20 MEQ PREMIX 100 ML IV PRN ×3 (11:00)
[2016-12-22] MEDS ORDERED: INSULIN REGULAR (IV INFUSION) 100 UNITS in SODIUM CHLORIDE 0.9% INJ 99 ML IV PRN (11:00)
--- NOTE | 2016-12-22 11:25 | PD.OP ---
cc: Pavan Crisostomo MD; Brittany Celeste MD Operative Report Date of Surgery: Dec 22, 2016 Preoperative Diagnosis: (1) CAD (coronary artery disease) (2) Mitral regurgitation (3) Diastolic CHF due to valvular disease Postoperative Diagnosis: same Procedure: MV repair with a 28 [place] annuloplasty ring CABG x 1 - SVG to Ramus - good JAYLON EVH Anesthesia: Dr. Willis Surgeon: Brittany Celeste Patient Service Rep(s): KATHY Draper Operation and Findings: The risks, benefits, complications, treatment options, and expected outcomes were discussed with the patient. The possibilities of reaction to medication, pulmonary aspiration, perforation of viscus, bleeding, recurrent infection, the need for additional procedures, failure to diagnose a condition, and creating a complication requiring transfusion or operation were discussed with the patient. The patient concurred with the proposed plan, giving informed consent. The site of surgery properly noted/marked. The patient was taken to Operating Room , identified as Orlando Dumont and the procedure verified as Mitral Valve Repair or Replacement, CABG, EVH, JAYLON. A Time Out was held and the above information confirmed. Standard monitoring lines and Mims catheter were placed. General anesthesia was induced. The patient was prepped and draped in a sterile fashion. A median sternotomy was performed and electrocautery was used to obtain hemostasis. Left greater saphenous vein was procured from the left leg using a minimally invasive endoscopic technique. The vein was prepared for anastomosis and the leg wound was irrigated and closed in 2 layers. The pericardium was opened and dense adhesions were encountered between the pericardium and epicardium. These were lysed using sharp and blunt dissection. A pericardial sling was created using interrupted 0 silk sutures. The patient was heparinized for cardiopulmonary bypass The heart was instrumented for cardiopulmonary bypass in the usual manner. Antegrade Custodiol cardioplegia was employed. The patient was placed on cardiopulmonary bypass. An aortic cross-clamp was applied and the heart was arrested using cold Custodiol cardioplegia. Retrograde cardioplegia was administered on induction and at least every 20 minutes. Antegrade cardioplegia was administered after he each anastomosis. After adequate arrest, the ramus intermedius artery was opened with a [place] blade and found to be a 1.5 millimeter good target. Saphenous vein was approximated to the ramus artery using a running 7 0 Prolene suture. The graft was measured for length and orientation and was suspended from the pericardium. The intra-atrial groove was dissected out using electrocautery. The left atrium was entered under direct vision and the atriotomy was extended mildly inferiorly and posteriorly. The mitral valve was exposed using an automatic retractor. The valve was analyzed and no segment was prolapsing. The annulus was sized to a 28 [place] annuloplasty ring which was seated using several interrupted 2-0 Tycron horizontal mattress sutures. After securing the sutures, the valve repair was tested and felt to be excellent. The left atrium was closed using a running 4-0 Prolene suture and a small catheter was left in the left atrium to assist in venting the heart. The patient was systemically rewarmed. The aorta was vented and the proximal anastomosis to the ramus graft was accomplished using a running 5 0 Prolene suture after creating an aortotomy was a 5 millimeter punch. The heart was vigorously deaired with a clamp on. The clamp was removed, deairing continued. Intraoperative JAYLON was used to assess intracardiac air and the mitral valve repair. Once the air was evacuated, the vent in the left atrium was removed and the suture line was secured. The heart was loaded and allowed to eject and the mitral valve was analyzed by JAYLON. The repair was excellent with no regurgitation. The patient was weaned from cardiopulmonary bypass. Protamine was given. There was no adverse reaction. Decannulation was carried out without incident. Wound was checked for hemostasis which was obtained using electrocautery. A 36 English mediastinal and 32 English left pleural chest was were placed and secured to the skin with 0 silk suture. The sternum was closed with stainless steel wire. The fascia was closed with 1. PDS. The subcutaneous tissue was closed using a running 2-0 Vicryl suture. The skin was closed with 4-0 Monocryl. Sterile dressings were placed. At the end of the operation, all sponge, instruments, and needle counts were correct. The patient was transferred to the CVICU in stable condition. Findings: Pericardial adhesions. Successful MV repair XC: 61 min CPB: 76 min Drains: mediastinal x 1 Implants: 28 [place] annuloplasty ring Complications: none Disposition: to CVICU in stable condition Brittany Celeste MD Dec 22, 2016 11:24
[2016-12-22] MEDS ORDERED: Post-op Orders (for Pharmacy) MISC OTHER ONE (11:49)
[2016-12-22] MEDS ORDERED: CALCIUM CHLORIDE INJ 1 GM in SODIUM CHLORIDE 0.9% INJ 100 ML IV PRN (12:00)
--- NOTE | 2016-12-22 12:57 | RADRPT ---
EXAM DATE/TIME: 12/22/2016 12:11 [facility] COMPARISON: No previous studies available for comparison. INDICATIONS : Post CABG MEDICAL HISTORY : Cardiovascular disease. Chronic obstructive pulmonary disease. Emphysema SURGICAL HISTORY : right upper lobectomy. Cardiac cath. ENCOUNTER: Subsequent ACUITY: 2 weeks PAIN SCORE: Non-responsive. LOCATION: chest FINDINGS: An endotracheal tube has its tip 4 cm above the quincy. A nasogastric tube has its tip in the proxim al stomach and the side port in the distal esophagus. A right internal jugular central line has its tip in the superior vena cava. There is no pneumothorax. There is a tiny right pleural effusion. T he lungs are essentially clear status post CABG. CONCLUSION: 1. Multiple tubes and lines appear to be adequate in positions. 2. Tiny right pleural effusion. Orlando Salter MD on December 22, 2016 at 12:44 Board Certified Radiologist. This report was verified electronically.
[2016-12-22] MEDS ORDERED: ACETAMINOPHEN 650 MG SUPP RECTAL PRN (13:00)
[2016-12-22] MEDS: ACETAMINOPHEN 1000 MG/100 ML 100 ML IV SCH ×3 (13:11→23:49)
[2016-12-22] MEDS: ALBUMIN 5% INJ 250 ML IV PRN (13:23)
[2016-12-22] MEDS: AMIODARONE 200 MG TAB PO SCH ×2 (13:54→21:31)
[2016-12-22] MEDS ORDERED: XYZAL 5 MG PO PRN (14:00)
[2016-12-22] MEDS ORDERED: RESP: ALBUTEROL 2.5 MG/IPRATROPIUM 0.5 MG NEB (SCH) NEB (16:00)
[2016-12-22] MEDS: RESP: ALBUTEROL 2.5 MG/IPRATROPIUM 0.5 MG NEB (SCH) NEB ×2 (16:23→21:28)
[2016-12-22] MEDS: SODIUM CHLORIDE 0.9% FLUSH 10 ML FLUSH IV FLUSH SCH (21:31)
[2016-12-23] VITALS (18 sets, daily range): BP systolic 90–108; BP diastolic 51–77; PULSE 91–113; RESP 16–19; TEMP 98–98.6; O2SAT 93–99
[2016-12-23] MEDS: ALBUMIN 5% INJ 250 ML IV PRN (02:18)
--- NOTE | 2016-12-23 05:00 | RADRPT ---
EXAM DATE/TIME: 12/23/2016 04:09 [facility] COMPARISON: CHEST SINGLE AP, December 22, 2016, 12:11. INDICATIONS : Chest pain post CABG MEDICAL HISTORY : Cardiovascular disease. Chronic obstructive pulmonary disease. Emphysema. SURGICAL HISTORY : CABG. Right Upper Lobectomy ENCOUNTER: Subsequent ACUITY: 2 weeks PAIN SCORE: Non-responsive. LOCATION: Bilateral chest FINDINGS: Decreased left mid lung infiltrate but there is increased consolidation of both bases in the interim. Biapical pleural thickening and parenchymal scarring again noted. No large effusion seen. No pneumot horax. Patient has been extubated. Nasogastric tube also removed. Mediastinal drain remains in place. There is a right internal jugular centimeters catheter with tip in the superior vena cava. Heart size stable, within normal limits. Median sternotomy changes are again noted. CONCLUSION: 1. Developing bibasilar consolidation. 2. Endotracheal tube and nasogastric tube removed. Jus Vazquez MD on December 23, 2016 at 4:56 Board Certified Radiologist. This report was verified electronically.
[2016-12-23] MEDS: RESP: ALBUTEROL 2.5 MG/IPRATROPIUM 0.5 MG NEB (SCH) NEB ×4 (05:03→21:59)
[2016-12-23] MEDS: AMIODARONE 200 MG TAB PO SCH ×3 (05:29→21:12)
[2016-12-23] MEDS: PANTOPRAZOLE SOD 40 MG DELAYED RELEASE TAB PO SCH (05:29)
[2016-12-23] MEDS: ACETAMINOPHEN 1000 MG/100 ML 100 ML IV SCH (05:31)
[2016-12-23 05:37] LABS: HEMATOCRIT 24.5 % (39.0-51.0); MEAN CORPUSCULAR HEMOGLOBIN 35.8 PG (27.0-34.0); MEAN CORPUSCULAR HGB CONC 34.4 % (32.0-36.0); PLATELET COUNT 75 TH/MM3 (150-450); RED BLOOD COUNT 2.36 MIL/MM3 (4.50-5.90); RED CELL DISTRIBUTION WIDTH 13.9 % (11.6-17.2); WHITE BLOOD COUNT 8.7 TH/MM3 (4.0-11.0)
[2016-12-23 05:38] LABS: REVIEW FLAG FINAL
[2016-12-23 06:01] LABS: BICARBONATE 25.4 MEQ/L (21.0-32.0); MAGNESIUM 1.8 MG/DL (1.5-2.5); POTASSIUM 4.3 MEQ/L (3.5-5.1)
--- NOTE | 2016-12-23 07:42 | PD.CAR.PN ---
CVT Progress Note CVT: POD #: 1 Subjective/Hospital Course: 12/23/16 s/p MV repair/CABG Doing well, no complaints Objective: Vital Signs Date Time Temp Pulse Resp B/P (MAP) Pulse Ox O2 Delivery O2 Flow Rate FiO2 12/23/16 03:15 98 12/23/16 03:11 98 Nasal Cannula 1.00 12/23/16 03:00 98.0 100 18 90/63 (72) 96 92/51 (65) 12/23/16 00:20 18 12/23/16 00:00 98.4 91 18 95/63 (74) 97 97/54 (68) 12/22/16 23:40 98 Nasal Cannula 1.00 12/22/16 23:20 99 12/22/16 22:55 18 12/22/16 21:28 96 Nasal Cannula 1.00 12/22/16 19:13 97 Nasal Cannula 1.00 12/22/16 19:00 84 12/22/16 19:00 97.4 86 16 99/74 (82) 94 103/63 (76) 12/22/16 16:24 99 Nasal Cannula 1.00 12/22/16 15:00 95 Nasal Cannula 2.00 12/22/16 15:00 82 12/22/16 15:00 96.7 84 18 119/88 (98) 95 122/77 (92) 12/22/16 14:45 99 Nasal Cannula 2 12/22/16 14:45 99 Nasal Cannula 2.00 12/22/16 14:05 30 12/22/16 14:05 Nasal Cannula 30 12/22/16 13:00 82 12/22/16 12:00 50 12/22/16 12:00 95.1 92 14 101/75 (84) 99 118/60 (79) 12/22/16 12:00 99 Mechanical Ventilator 50 12/22/16 11:50 99 40 Labs: Laboratory Tests Test 12/23/16 05:20 White Blood Count 8.7 TH/MM3 (4.0-11.0) Red Blood Count 2.36 MIL/MM3 (4.50-5.90) Hemoglobin 8.4 GM/DL (13.0-17.0) Hematocrit 24.5 % (39.0-51.0) Mean Corpuscular Volume 104.0 FL (80.0-100.0) Mean Corpuscular Hemoglobin 35.8 PG (27.0-34.0) Mean Corpuscular Hemoglobin Concent 34.4 % (32.0-36.0) Red Cell Distribution Width 13.9 % (11.6-17.2) Platelet Count 75 TH/MM3 (150-450) Mean Platelet Volume 7.8 FL (7.0-11.0) Blood Urea Nitrogen 15 MG/DL (7-18) Creatinine 0.51 MG/DL (0.60-1.30) Random Glucose 140 MG/DL (74-106) Calcium Level 7.6 MG/DL (8.5-10.1) Magnesium Level 1.8 MG/DL (1.5-2.5) Sodium Level 137 MEQ/L (136-145) Potassium Level 4.3 MEQ/L (3.5-5.1) Chloride Level 104 MEQ/L (98-107) Carbon Dioxide Level 25.4 MEQ/L (21.0-32.0) Anion Gap 8 MEQ/L (5-15) Estimat Glomerular Filtration Rate 169 ML/MIN (>89) Result Diagram: 12/23/1651912/23/16519 Imaging: Last 24 hours Impressions Chest X-Ray 12/23/16 0500 Signed Impressions: Service Date/Time: Friday, December 23, 2016 04:09 - CONCLUSION: 1. Developing bibasilar consolidation. 2. Endotracheal tube and nasogastric tube removed. Jus Vazquez MD Cardiovascular: RRR Telemetry: NSR Pulmonary: CTA GI/: NABS, NT Incision: dry and intact CT: 160ml/12 hrs Plan: Continue chest tubes Diurese Encourage ambulation/up to chair Remove guevara Advance diet No beta rita due to low BP today. Brittany Celeste MD Dec 23, 2016 07:42
[2016-12-23] MEDS ORDERED: SOD PHOSPHATE/SOD BIPHOSPHATE (ADULT) ENEMA 133ML RECTAL PRN (07:45)
[2016-12-23] MEDS ORDERED: DEXTROSE 50% IN WATER 50 ML VIAL(D50) IV PUSH PRN (07:45)
[2016-12-23] MEDS ORDERED: BISACODYL 10 MG SUPP RECTAL PRN (07:45)
[2016-12-23] MEDS ORDERED: GLUCAGON 1 MG/ML VIAL OTHER PRN (07:45)
[2016-12-23] MEDS ORDERED: MULTIVITAMIN INJ 10 ML, THIAMINE INJ 500 MG, FOLIC ACID INJ 1 MG in SODIUM CHLORID 0.9%... IV SCH (09:00)
[2016-12-23] MEDS: TIOTROPIUM BROMIDE 18 MCG INH INH SCH (09:00)
[2016-12-23] MEDS ORDERED: MULTIVITAMIN TAB PO SCH (09:00)
[2016-12-23] MEDS: INSULIN ASPART SUPPLEMENTAL SCALE SQ SCH ×4 (10:00→23:26)
[2016-12-23] MEDS: MULTIVITAMINS/MINERALS THERAPEUTIC TAB PO SCH (10:33)
[2016-12-23] MEDS: MAGNESIUM HYDROXIDE SUSP 30 ML CUP PO SCH (10:33)
[2016-12-23] MEDS: ATORVASTATIN 40 MG TAB PO SCH (10:34)
[2016-12-23] MEDS: ASPIRIN 81 MG CHEW TAB PO SCH (10:34)
[2016-12-23] MEDS: CLOPIDOGREL 75 MG TAB PO SCH (10:34)
[2016-12-23] MEDS: POTASSIUM CHLORIDE 10 MEQ CONTROLLED RELEASE TAB PO SCH ×2 (10:34→21:06)
[2016-12-23] MEDS: FUROSEMIDE 40 MG/4 ML VIAL IV PUSH SCH ×2 (10:35→17:00)
[2016-12-23] MEDS: FOLIC ACID 1 MG TAB PO SCH (10:41)
[2016-12-23] MEDS: SODIUM CHLORIDE 0.9% FLUSH 10 ML FLUSH IV FLUSH SCH ×2 (10:42→21:00)
--- NOTE | 2016-12-23 12:06 | EKG ---
Date Performed: 12/23/2016 Time Performed: 05:23:02 PTAGE: 56 years EKG: Sinus rhythm Normal ECG Compared to prior tracing no significant change PREVIOUS TRACING : 12/02/2016 06.49 DOCTOR: Jb Zaidi Interpretating Date/Time 12/23/2016 12:06:17
[2016-12-23] MEDS: oxyCODONE/ACETAMINOPHEN 5 MG/325 MG TAB PO PRN ×3 (13:53→21:22)
[2016-12-23] MEDS: DOCUSATE SODIUM 100 MG CAP PO SCH (21:06)
[2016-12-23] MEDS: SENNOSIDES 8.6 MG TAB PO SCH (21:06)
[2016-12-24] VITALS (29 sets, daily range): BP systolic 101–122; BP diastolic 64–79; PULSE 91–108; RESP 16–18; TEMP 97.5–98.5; O2SAT 93–98
[2016-12-24] MEDS: INSULIN ASPART SUPPLEMENTAL SCALE SQ SCH ×6 (02:00→21:44)
[2016-12-24] MEDS: oxyCODONE/ACETAMINOPHEN 5 MG/325 MG TAB PO PRN ×2 (02:48→18:13)
[2016-12-24] MEDS: RESP: ALBUTEROL 2.5 MG/IPRATROPIUM 0.5 MG NEB (SCH) NEB ×4 (03:44→21:21)
[2016-12-24 05:23] LABS: AUTOMATED NEUTROPHIL # 8.5 TH/MM3 (1.8-7.7); BASOPHIL % 0.2 % (0.0-2.0); EOSINOPHIL % 0.3 % (0.0-4.0); HEMATOCRIT 25.8 % (39.0-51.0); LYMPH % 13.1 % (9.0-44.0); LYMPHOCYTE # 1.4 TH/MM3 (1.0-4.8); MEAN CELL VOLUME 105.2 FL (80.0-100.0); MEAN CORPUSCULAR HGB CONC 35.1 % (32.0-36.0); MONO % 8.8 % (0.0-8.0); NEUT % 77.6 % (16.0-70.0); PLATELET COUNT 81 TH/MM3 (150-450); RED BLOOD COUNT 2.46 MIL/MM3 (4.50-5.90)
[2016-12-24 05:31] LABS: HEMO FLAGS AUTO DIFF
[2016-12-24 05:56] LABS: BICARBONATE 30.4 MEQ/L (21.0-32.0); MAGNESIUM 2.2 MG/DL (1.5-2.5)
[2016-12-24] MEDS: PANTOPRAZOLE SOD 40 MG DELAYED RELEASE TAB PO SCH (06:04)
[2016-12-24] MEDS: AMIODARONE 200 MG TAB PO SCH ×3 (06:04→21:37)
[2016-12-24 07:37] LABS: PLATELET ESTIMATE SMEAR LOW (NORMAL); PLATELET MORPHOLOGY NORMAL (NORMAL); SCAN/DIFF AUTO DIFF CONFIRMED
[2016-12-24] MEDS: TIOTROPIUM BROMIDE 18 MCG INH INH SCH (09:00)
--- NOTE | 2016-12-24 09:15 | PD.CAR.PN ---
CVT Progress Note Subjective/Hospital Course: 12/23/16 s/p MV repair/CABG Doing well, no complaints 12/[address] still draining. Maintain to suction Ambulate Objective: Vital Signs Date Time Temp Pulse Resp B/P (MAP) Pulse Ox O2 Delivery O2 Flow Rate FiO2 12/24/16 07:59 98.0 105 18 110/74 (86) 12/24/16 07:15 94 12/24/16 07:15 91 Room Air 2.00 12/24/16 06:10 93 12/24/16 05:28 96 12/24/16 04:19 95 12/24/16 03:46 94 Nasal Cannula 3.00 12/24/16 03:20 96 12/24/16 03:20 93 Nasal Cannula 2.00 12/24/16 03:20 98.0 95 16 105/68 (80) 93 12/24/16 02:14 92 12/24/16 01:28 97 12/24/16 00:09 96 12/23/16 23:46 93 Nasal Cannula 2.00 12/23/16 23:46 98.2 99 16 104/67 (79) 93 12/23/16 23:46 98 12/23/16 22:01 96 12/23/16 21:00 98 12/23/16 20:15 95 Nasal Cannula 2.00 12/23/16 20:15 98.5 102 18 108/72 (84) 95 12/23/16 20:00 98 12/23/16 19:31 99 12/23/16 18:00 112 12/23/16 17:00 98 12/23/16 16:00 98 12/23/16 15:45 98.6 101 16 105/68 (80) 99 12/23/16 15:45 98.6 101 16 105/68 (80) 99 12/23/16 15:45 99 Nasal Cannula 2.00 12/23/16 15:17 99 Nasal Cannula 3.00 12/23/16 15:00 96 12/23/16 12:32 98 12/23/16 12:32 98.3 98 19 108/77 (87) 98 Arterial Line 12/23/16 12:32 98 Nasal Cannula 3.00 12/23/16 12:00 98.3 113 19 103/74 (84) 97 Arterial Line 12/23/16 09:49 94 Nasal Cannula 2.00 Labs: Laboratory Tests Test 12/24/16 04:48 White Blood Count 11.0 TH/MM3 (4.0-11.0) Red Blood Count 2.46 MIL/MM3 (4.50-5.90) Hemoglobin 9.1 GM/DL (13.0-17.0) Hematocrit 25.8 % (39.0-51.0) Mean Corpuscular Volume 105.2 FL (80.0-100.0) Mean Corpuscular Hemoglobin 37.0 PG (27.0-34.0) Mean Corpuscular Hemoglobin Concent 35.1 % (32.0-36.0) Red Cell Distribution Width 14.0 % (11.6-17.2) Platelet Count 81 TH/MM3 (150-450) Mean Platelet Volume 8.9 FL (7.0-11.0) Neutrophils (%) (Auto) 77.6 % (16.0-70.0) Lymphocytes (%) (Auto) 13.1 % (9.0-44.0) Monocytes (%) (Auto) 8.8 % (0.0-8.0) Eosinophils (%) (Auto) 0.3 % (0.0-4.0) Basophils (%) (Auto) 0.2 % (0.0-2.0) Neutrophils # (Auto) 8.5 TH/MM3 (1.8-7.7) Lymphocytes # (Auto) 1.4 TH/MM3 (1.0-4.8) Monocytes # (Auto) 1.0 TH/MM3 (0-0.9) Eosinophils # (Auto) 0.0 TH/MM3 (0-0.4) Basophils # (Auto) 0.0 TH/MM3 (0-0.2) CBC Comment AUTO DIFF Differential Comment AUTO DIFF CONFIRMED Platelet Estimate LOW (NORMAL) Platelet Morphology Comment NORMAL (NORMAL) Blood Urea Nitrogen 15 MG/DL (7-18) Creatinine 0.72 MG/DL (0.60-1.30) Random Glucose 130 MG/DL (74-106) Calcium Level 7.9 MG/DL (8.5-10.1) Magnesium Level 2.2 MG/DL (1.5-2.5) Sodium Level 136 MEQ/L (136-145) Potassium Level 4.0 MEQ/L (3.5-5.1) Chloride Level 101 MEQ/L (98-107) Carbon Dioxide Level 30.4 MEQ/L (21.0-32.0) Anion Gap 5 MEQ/L (5-15) Estimat Glomerular Filtration Rate 113 ML/MIN (>89) Result Diagram: 12/24/16 0448 12/24/16 0448 Татьяна De La Torre MD Dec 24, 2016 09:15
[2016-12-24] MEDS: POLYETHYLENE GLYCOL 17 GM PKG PO SCH (09:41)
[2016-12-24] MEDS: SODIUM CHLORIDE 0.9% FLUSH 10 ML FLUSH IV FLUSH SCH ×2 (09:41→21:37)
[2016-12-24] MEDS: CLOPIDOGREL 75 MG TAB PO SCH (09:42)
[2016-12-24] MEDS: MAGNESIUM HYDROXIDE SUSP 30 ML CUP PO SCH (09:42)
[2016-12-24] MEDS: ATORVASTATIN 40 MG TAB PO SCH (09:42)
[2016-12-24] MEDS: POTASSIUM CHLORIDE 10 MEQ CONTROLLED RELEASE TAB PO SCH ×2 (09:42→21:37)
[2016-12-24] MEDS: FUROSEMIDE 40 MG/4 ML VIAL IV PUSH SCH ×2 (09:43→18:07)
[2016-12-24] MEDS: MULTIVITAMINS/MINERALS THERAPEUTIC TAB PO SCH (09:43)
[2016-12-24] MEDS: FOLIC ACID 1 MG TAB PO SCH (09:43)
[2016-12-24] MEDS: ASPIRIN 81 MG CHEW TAB PO SCH (09:43)
[2016-12-24] MEDS: DOCUSATE SODIUM 100 MG CAP PO SCH ×2 (09:43→21:37)
[2016-12-24] MEDS: SENNOSIDES 8.6 MG TAB PO SCH (21:37)
[2016-12-25] VITALS (28 sets, daily range): BP systolic 104–130; BP diastolic 59–72; PULSE 83–112; RESP 16–18; TEMP 98–98.7; O2SAT 92–98
[2016-12-25] MEDS: RESP: ALBUTEROL 2.5 MG/IPRATROPIUM 0.5 MG NEB (SCH) NEB ×4 (03:26→21:12)
[2016-12-25] MEDS: AMIODARONE 200 MG TAB PO SCH ×3 (05:09→21:29)
[2016-12-25] MEDS: PANTOPRAZOLE SOD 40 MG DELAYED RELEASE TAB PO SCH (05:09)
[2016-12-25] MEDS: INSULIN ASPART SUPPLEMENTAL SCALE SQ SCH ×4 (08:00→21:00)
--- NOTE | 2016-12-25 08:57 | PD.CAR.PN ---
CVT Progress Note Subjective/Hospital Course: 12/23/16 s/p MV repair/CABG Doing well, no complaints 12/[address] still draining. Maintain to suction Ambulate 12/25 Doing well D/C CT Discharge planning Objective: Vital Signs Date Time Temp Pulse Resp B/P (MAP) Pulse Ox O2 Delivery O2 Flow Rate FiO2 12/25/16 07:15 92 Room Air 12/25/16 07:15 92 12/25/16 07:15 98.7 90 18 110/69 (83) 92 12/25/16 06:09 87 12/25/16 05:28 90 12/25/16 04:23 87 12/25/16 03:34 86 12/25/16 03:20 97 Nasal Cannula 2.00 12/25/16 03:20 98.3 92 16 104/71 (82) 97 12/25/16 02:14 88 12/25/16 01:18 83 12/25/16 00:01 83 12/24/16 23:30 98.5 93 16 109/71 (84) 98 12/24/16 23:30 98 Nasal Cannula 2.00 12/24/16 23:15 91 12/24/16 22:00 96 12/24/16 21:22 94 Nasal Cannula 4.00 12/24/16 21:00 94 12/24/16 20:10 100 12/24/16 19:42 101 12/24/16 19:20 93 Nasal Cannula 2.00 12/24/16 19:20 98.3 103 16 122/75 (91) 93 12/24/16 18:00 108 12/24/16 17:00 106 12/24/16 16:00 101 12/24/16 15:00 94 Room Air 2.00 12/24/16 15:00 99 12/24/16 15:00 98.1 101 18 101/64 (76) 94 12/24/16 14:00 102 12/24/16 13:00 106 12/24/16 12:00 108 12/24/16 11:00 97.5 106 18 122/79 (93) 95 12/24/16 11:00 95 Room Air 2.00 12/24/16 11:00 108 12/24/16 10:43 Nasal Cannula 2.00 12/24/16 10:00 100 12/24/16 09:00 99 Result Diagram: 12/24/16 0448 12/24/16 0448 Татьяна De La Torre MD Dec 25, 2016 08:57
[2016-12-25] MEDS: SODIUM CHLORIDE 0.9% FLUSH 10 ML FLUSH IV FLUSH SCH ×2 (09:00→21:00)
[2016-12-25] MEDS: TIOTROPIUM BROMIDE 18 MCG INH INH SCH (09:00)
[2016-12-25] MEDS: DOCUSATE SODIUM 100 MG CAP PO SCH ×2 (09:53→21:00)
[2016-12-25] MEDS: FUROSEMIDE 40 MG/4 ML VIAL IV PUSH SCH ×2 (09:53→17:08)
[2016-12-25] MEDS: ASPIRIN 81 MG CHEW TAB PO SCH (09:53)
[2016-12-25] MEDS: FOLIC ACID 1 MG TAB PO SCH (09:53)
[2016-12-25] MEDS: ATORVASTATIN 40 MG TAB PO SCH (09:54)
[2016-12-25] MEDS: MAGNESIUM HYDROXIDE SUSP 30 ML CUP PO SCH (10:04)
[2016-12-25] MEDS: CLOPIDOGREL 75 MG TAB PO SCH (10:04)
[2016-12-25] MEDS: MULTIVITAMINS/MINERALS THERAPEUTIC TAB PO SCH (10:04)
[2016-12-25] MEDS: POLYETHYLENE GLYCOL 17 GM PKG PO SCH (10:04)
[2016-12-25] MEDS: POTASSIUM CHLORIDE 10 MEQ CONTROLLED RELEASE TAB PO SCH ×2 (10:05→21:00)
[2016-12-25] MEDS: SENNOSIDES 8.6 MG TAB PO SCH (21:00)
[2016-12-26] VITALS (15 sets, daily range): BP systolic 98–135; BP diastolic 67–79; PULSE 82–96; RESP 14–18; TEMP 97.4–98.5; O2SAT 96–99
[2016-12-26] MEDS: RESP: ALBUTEROL 2.5 MG/IPRATROPIUM 0.5 MG NEB (SCH) NEB ×2 (03:36→10:16)
[2016-12-26] MEDS: AMIODARONE 200 MG TAB PO SCH (06:27)
[2016-12-26] MEDS: PANTOPRAZOLE SOD 40 MG DELAYED RELEASE TAB PO SCH (06:27)
[2016-12-26] MEDS: INSULIN ASPART SUPPLEMENTAL SCALE SQ SCH ×2 (08:00→11:45)
[2016-12-26] MEDS: MAGNESIUM HYDROXIDE SUSP 30 ML CUP PO SCH (09:00)
[2016-12-26] MEDS: POLYETHYLENE GLYCOL 17 GM PKG PO SCH (09:00)
[2016-12-26] MEDS: SODIUM CHLORIDE 0.9% FLUSH 10 ML FLUSH IV FLUSH SCH (09:00)
[2016-12-26] MEDS: TIOTROPIUM BROMIDE 18 MCG INH INH SCH (09:00)
[2016-12-26] MEDS: POTASSIUM CHLORIDE 10 MEQ CONTROLLED RELEASE TAB PO SCH (09:05)
[2016-12-26] MEDS: FUROSEMIDE 40 MG/4 ML VIAL IV PUSH SCH (09:05)
[2016-12-26] MEDS: FOLIC ACID 1 MG TAB PO SCH (09:05)
[2016-12-26] MEDS: MULTIVITAMINS/MINERALS THERAPEUTIC TAB PO SCH (09:05)
[2016-12-26] MEDS: CLOPIDOGREL 75 MG TAB PO SCH (09:06)
[2016-12-26] MEDS: DOCUSATE SODIUM 100 MG CAP PO SCH (09:06)
[2016-12-26] MEDS: ASPIRIN 81 MG CHEW TAB PO SCH (09:06)
[2016-12-26] MEDS: ATORVASTATIN 40 MG TAB PO SCH (09:06)
--- NOTE | 2016-12-26 09:11 | RADRPT ---
EXAM DATE/TIME: 12/26/2016 08:44 [facility] COMPARISON: CHEST SINGLE AP, December 23, 2016, 4:09. INDICATIONS : Post chest tube removal. MEDICAL HISTORY : Cardiovascular disease. Chronic obstructive pulmonary disease. Emphysema. SURGICAL HISTORY : CABG. Right Upper Lobectomy ENCOUNTER: Subsequent ACUITY: 2 weeks PAIN SCORE: 0/10 LOCATION: Bilateral chest FINDINGS: A single view of the chest demonstrates bibasilar densities and small pleural effusions. Previous CAB G. Hyperinflation. Heart upper limits of normal in size. Mediastinal chest tube removed. No pneumotho rax. Osseous structures are intact. CONCLUSION: 1. Bibasilar densities and small pleural effusions bilaterally. 2. Status post median sternotomy. 3. No pneumothorax. Harsh Solares MD on December 26, 2016 at 9:06 Board Certified Radiologist. This report was verified electronically.
[2016-12-26] MEDS ORDERED: ASPI81CH25 PO (11:34)
[2016-12-26] MEDS ORDERED: PLAV75TA29 PO (11:34)
[2016-12-26] MEDS ORDERED: ATOR40TA16 PO (11:34)
[2016-12-26] MEDS ORDERED: AMIO200T PO (11:34)
[2016-12-26] MEDS ORDERED: DOCU1CAP39 PO (11:34)
[2016-12-26] MEDS ORDERED: METO25TA3 PO (11:34)
[2016-12-26] MEDS ORDERED: OXYC1TAB63 PO (11:34)
--- NOTE | 2016-12-26 11:37 | HHI.FF ---
Face to Face Verification Diagnosis: (1) S/P CABG x 1 (2) S/P mitral valve repair (3) CAD (coronary artery disease) (4) Mitral regurgitation (5) Diastolic CHF due to valvular disease Home Health Nursing Order: Signs/symptoms of disease process Medication education-adverse effect Wound care and dressing changes Nursing assessment with vital signs Instructions: Heart and Vascular Surgery patients *Special attention to sternal dressing Mandatory frequency Assess and evaluation, 4 days in a row The next week 3X week 2 times a week for 4 weeks 1 time a week for 5 weeks Schedule Heart and Vascular patients for full 60 day certification period Initial visit Review Open Heart Surgery Discharge Instructions (Sternal precautions, Activity, Elastic hose, Incision care, Driving, Incentive spirometry, Smoking, [place], Work and other) Need Betadine to paint incision Medication reconciliation Importance of follow up care/ check on appointments Make calendar record temperature daily When to call [facility] nurse, review instructions, phone list Incentive Spirometry, demonstration Visit 1- Begin discharge instruction for patient family and/ or caregiver using teach back method- Signs and symptoms of infection Disease characteristics Medicines and side effects Foods and nutrition/ appetite Infection control/ hand washing/ hygiene Visit 2- Continue teaching Discharge instructions- include additional information on smoking cessation , sternal dressing (sternal vac) Visit 3- Continue teaching- Cough and deep breathing, incision monitoring. Choose my plate Visit 4- Continue teaching- Discuss limitations Discuss how they are feeling Discuss progress toward goals Remaining visits- continue teaching and monitoring For any questions please call : Monday 8am-5pm Heart & Vascular Surgery Office ( Dr. De La Torre & Dr. Celeste), After Hours / Nights (5pm -8am) Weekends and Holidays Please call [facility] Cardiac Intermediate Care Unit (CIC) Charge Nurse Incentive spirometry Q1 hr x 10, while awake, also use acapella device hourly whole awake Sternal Breast Bone Precautions: NO pushing or pulling, ( pt must use sternal pillow to support chest with all activities and with coughing ( takes up to 3 months breast bone to heal ) Daily incision care: ok to shower daily, no tub bath. Wash all incisions with liquid dial soap, clean wash cloth to each site, rinse and pat dry. Observe for any signs of infection, such as drainage which is dark yellow, mata, green or foul smelling. Immediately report to the surgeon any drainage from the chest incision, or legs, and for any abnormal drainage from the chest tube sites. Notify surgeon if any temp >101.5 degrees F. When specialty dressing removed/ or if you do not have one, continue to shower daily as above, then rinse and pat incision dry and paint with betadine daily x 5 days. Allow steri strips to fall off if you have any. Avoid lotions, creams, salves, oils, etc. for the first month Please see attached forms for additional instructions regarding post Open Heart specialty wound vacuum dressings. NARINDER or Prevena , Dressing to be removed by Nursing staff on ___12/29/16____ For Dr. Celeste patients , please obtain CBC, BMP, PA & Lat CXR in 2 weeks, results to Dr. Celeste ( prescription will be given) ( ) (Tele: [phone]) , Valve replacement pts will need 2decho in 2 weeks with results to Dr. Celeste . Please obtain 2 d echo at your model technician office if possible F/U appointment: as per DC instructions: PCP in 2 weeks, CV surgeon 2 weeks, Director Fundraising 3-4 weeks For any questions regarding incisions/ dressing / meds / post op care or above Symptoms, Monday 8am-5pm Heart & Vascular Surgery Office ( Dr. De La Torre & Dr. Celeste), After Hours / Nights (5pm -8am) Weekends and Holidays Please call [facility] Cardiac Intermediate Care Unit (CIC) Charge Nurse PREVENA Single Use Negative Wound Therapy System Caregiver Instruction Sheet 1. A Prevena dressing system was applied to the chest incision during surgery , to promote wound healing. It works via a suction device (negative pressure wound therapy) to remove low to moderate levels of exudate (drainage) and infectious materials. We recommend that the device stay in place for up to seven days, from day of surgery. 2. Day of Surgery___12/22/16 Day of Removal __12/29/16 3. The dressing should only be removed by a health respiratory care specialist. Please arrange removal of device to coincide with Home Health visit and or with Nursing staff at Rehab 4. If skin reddening or irritation of skin occurs, or excessive drainage, please notify the Cardiovascular Surgeons office at [phone]. 5. Light showering is permissible; however the pump should be disconnected and placed in safe location, where it will not get wet. The dressing should not be exposed to direct spray or submerged in water. No bath tub / shower only. Ensure the end of the tubing attached to the dressing is facing down so that water does not enter the top of the tube. 6. To remove Prevena dressing: press purple button to turn off device / remove the suction. Then disconnect the tubing from the pump. The fixation strips should be stretched away from the skin and the dressing lifted at one corner and peeled back until it has been fully removed. 7. After removal, it is ok to shower daily using liquid dial soap and clean wash cloth, rinse and pat dry, and leave incision open to air dry. For any concerns regarding Prevena dressing, and or wounds, please contact Nadine Willis, patient navigator at [phone] or notify the Cardiovascular Surgeons office at [phone]. I have seen patient Orlando Dumont on 12/26/16. My clinical findings support the need for the requested home health care services because: Deconditioned w/ increased weakness I certify that my clinical findings support that this patient is homebound because: Post-op weakness Diane Menon Dec 26, 2016 11:37
[2016-12-26] MEDS ORDERED: METOPROLOL TARTRATE 25 MG TAB PO ONE (11:45)
--- NOTE | 2016-12-26 11:46 | HHI.DS ---
Discharge Summary Admission Date Dec 22, 2016 at 05:25 Discharge Date: Dec 26, 2016 Admitting Diagnosis (1) CAD (coronary artery disease) (2) Mitral regurgitation (3) Diastolic CHF due to valvular disease (1) S/P mitral valve repair Diagnosis: Secondary ICD Codes: Z98.890 - Other specified postprocedural states (2) S/P CABG x 1 Diagnosis: Secondary ICD Codes: Z95.1 - Presence of aortocoronary bypass graft (3) CAD (coronary artery disease) Diagnosis: Principal ICD Codes: I25.10 - Atherosclerotic heart disease of [place] coronary artery without angina pectoris Status: Chronic (4) Mitral regurgitation Diagnosis: Principal ICD Codes: I34.0 - Nonrheumatic mitral (valve) insufficiency Status: Chronic (5) Diastolic CHF due to valvular disease Diagnosis: Principal ICD Codes: I38 - Endocarditis, valve unspecified; I50.30 - Unspecified diastolic (congestive) heart failure Status: Chronic Procedures MV repair with a 28 Maribell annuloplasty ring 12/22/16 CABG x 1 - SVG to Ramus - good JAYLON EVH Brief History A 56-year-old male, patient ANKUR Vergara, also Dr. Pavan Craig, with history of known mitral valve murmur for about 10 years, has been having some chest pain intermittently off and on for the last year and just noticed some increasing in fatigue. He was admitted [facility] at [facility] two weeks ago, had a stress test and an echocardiogram. He has also been having some dizziness, lightheadedness. The pain was sporadic. He did have an echocardiogram at Dr. Craig's office October 06; at that time showed an EF of 55-60 %, moderate mitral valve regurgitation with an eccentric jet. He underwent JAYLON today, also had heart catheterization which showed some RCA stenosis 60%, ramus of 70, diagonal 60%. We were consulted to evaluate for mitral valve repair versus mitral valve replacement, coronary artery bypass grafting x2. CBC/BMP: 12/24/16 0448 12/24/16 0448 Significant Findings Laboratory Tests Test 12/24/16 04:48 12/26/16 10:47 Red Blood Count 2.46 MIL/MM3 (4.50-5.90) Hemoglobin 9.1 GM/DL (13.0-17.0) Hematocrit 25.8 % (39.0-51.0) Mean Corpuscular Volume 105.2 FL (80.0-100.0) Mean Corpuscular Hemoglobin 37.0 PG (27.0-34.0) Platelet Count 81 TH/MM3 (150-450) Neutrophils (%) (Auto) 77.6 % (16.0-70.0) Monocytes (%) (Auto) 8.8 % (0.0-8.0) Neutrophils # (Auto) 8.5 TH/MM3 (1.8-7.7) Monocytes # (Auto) 1.0 TH/MM3 (0-0.9) Platelet Estimate LOW (NORMAL) Random Glucose 130 MG/DL (74-106) Calcium Level 7.9 MG/DL (8.5-10.1) Imaging Last Impressions Chest X-Ray 12/26/16 0000 Signed Impressions: Service Date/Time: Monday, December 26, 2016 08:44 - CONCLUSION: 1. Bibasilar densities and small pleural effusions bilaterally. 2. Status post median sternotomy. 3. No pneumothorax. Harsh Solares MD PE at Discharge GENERAL: SKIN: Warm and dry. prevena dressing to chest , incision intact to l eft leg HEAD: Normocephalic. EYES: No scleral icterus. No injection or drainage. NECK: Supple, trachea midline. No JVD or lymphadenopathy. CARDIOVASCULAR: Regular rate and rhythm without murmurs, gallops, or rubs. RESPIRATORY: Breath sounds equal bilaterally. No accessory muscle use. GASTROINTESTINAL: Abdomen soft, non-tender, nondistended. MUSCULOSKELETAL: No cyanosis, or edema. BACK: Nontender without obvious deformity. No CVA tenderness. Hospital Course 12/23/16 s/p MV repair/CABG Doing well, no complaints 12/[address] still draining. Maintain to suction Ambulate 12/25 Doing well D/C CT Discharge planning 12/26 CXR stable add low dose BB diuresed well weight stable stable for dc home with C on statin BB ASA Pt Condition on Discharge: Fair Discharge Disposition: Disch w/ Home Health Serv Discharge Instructions DIET: Follow Instructions for: Heart Healthy Diet Activities you can perform: Full Weight Bearing, Shower Only-No Bath Activities to avoid: Strenuous Activity, Driving Additional Activity Instructio: no lifting > 8 lbs or gallon of milk Follow up Referrals: Cardiology with Paul Strauss DO PCP Follow-up with Joey Lee MD AT [facility] OFF[facility]: [phone] [facility] [phone] Surgical with Brittany Celeste MD New Orders: 2D ECHO - 2 Weeks BASIC METABOLIC PROF - 2 Weeks CBC WITH DIFF - 2 Weeks X-RAY CHEST PA & LAT - 2 Weeks New Medications: Metoprolol Tartrate (Metoprolol Tartrate) 25 Mg Tab 12.5 MG PO BID for Blood Pressure Management, #60 TAB 0 Refills Amiodarone (Amiodarone) 200 Mg Tab 200 MG PO Q12HR for heart rhythm, #28 TAB 0 Refills Aspirin (Aspirin Low Strength) 81 Mg Chew 81 MG PO DAILY for Blood Clot Prevention, #30 EA 2 Refills Atorvastatin (Atorvastatin) 40 Mg Tab 40 MG PO DAILY for Cholesterol Management, #30 TAB 2 Refills Clopidogrel (Plavix) 75 Mg Tab 75 MG PO DAILY for Blood Clot Prevention, #30 TAB 2 Refills Docusate Sodium (Dok) 100 Mg Cap 100 MG PO BID for Constipation, #60 CAP 0 Refills Oxycodone-Acetaminophen (Oxycodone-Acetaminophen) 5-325 mg Tab 1 TAB PO Q6H PRN for PAIN SCALE 1 TO 5, #40 TAB 0 Refills Continued Medications: Albuterol 18 GM Inh (Ventolin Hfa 18 GM Inh) 90 Mcg/Act Aer 1 PUFF INH Q4H PRN for SHORTNESS OF BREATH, #1 INHALER 0 Refills Cholecalciferol (Vitamin D3) 400 Unit Cap 400 UNITS PO DAILY for Nutritional Supplement, #1 BOTTLE 0 Refills Cyanocobalamin (B-12) 1,000 Mcg Subl 1000 MCG SL DAILY for Nutritional Supplement, TAB.SL 0 Refills Folic Acid (Folic Acid) 0.4 Mg Tab 1000 MCG PO DAILY for Nutritional Supplement, TAB 0 Refills Levocetirizine Dihydrochloride (Xyzal) 5 Mg Tablet 1 TAB PO DAILY PRN for ALLERGIES Multiple Vitamin (Multiple Vitamin) 1 Tab 1 TAB PO DAILY for Nutritional Supplement, TAB 0 Refills Tiotropium Inh (Spiriva Handihaler) 18 Mcg Cap 18 MCG INH DAILY for COPD, #30 CAP 0 Refills 1 capsule = 18 mcg Diane Menon Dec 26, 2016 11:46
[2016-12-26 11:49] LABS: MAGNESIUM 2.4 MG/DL (1.5-2.5); POTASSIUM 4.5 MEQ/L (3.5-5.1)
[2016-12-26] MEDS ORDERED: PILL SPLITTER OTHER PRN (12:00)
== END 2016-12-26 15:00 | disposition home health service (06) | DRG 220 ==
LOC: HSDI 05:25 → HCVI 11:54 → HCPC 12-23 12:50
PROVIDERS: ADMIT Thoracic Surgery (Cardiothoracic Vascular Surgery); ATTEND Thoracic Surgery (Cardiothoracic Vascular Surgery)
PROC: 021009W Bypass Coronary Artery, One Artery from Aorta with Autologous Venous Tissue, Open Approach (ICD-10-PCS; 2016-12-22)
PROC: 06BQ4ZZ Excision of Left Saphenous Vein, Percutaneous Endoscopic Approach (ICD-10-PCS; 2016-12-22)
PROC: 5A1221Z Performance of Cardiac Output, Continuous (ICD-10-PCS; 2016-12-22)
PROC: 02UG0JZ Supplement Mitral Valve with Synthetic Substitute, Open Approach (ICD-10-PCS; principal; 2016-12-22 07:30)
PROC: B246ZZ4 Ultrasonography of Right and Left Heart, Transesophageal (ICD-10-PCS; 2016-12-22 07:30)
DX: I25.10 Atherosclerotic heart disease of native coronary artery without angina pectoris (principal); I50.30 Unspecified diastolic (congestive) heart failure; J44.9 Chronic obstructive pulmonary disease, unspecified; I34.0 Nonrheumatic mitral (valve) insufficiency; Z88.5 Allergy status to narcotic agent; Z87.891 Personal history of nicotine dependence; Z90.2 Acquired absence of lung [part of]
CPT/HCPCS: 71010; 80048; 82948; 83735; 85014; 85025; 85027; 86850; 86900; 86901; 86920; 88305; 93005; 94002; 94150; 94640; 94664; 94667; 94668; J0131; J0690; J1644; J1815; J1885; J1940; J2150; J2405; J2930; J3010; J3370; J3480; J7120; P9045; P9047